=== PATIENT | female | born 1965 | race Caucasian/White ===

== ENCOUNTER 2020-05-19 16:22 | Inpatient (IN) | payer OTHER ==
[~2020-05-19] VITALS: Ht 177.8 cm; Wt 117.9 kg
--- NOTE | 2020-05-19 16:22 | NUR ---
PT BIBA RA 88 "was found on side of the free[place] weakness/ALOC" BS-102. PT IS AAOX2, NOT IN RESPIRATORY DISTRESS, HOOKED TO CORN DETASSELER MACHINE OPERATOR, KEPT RESTED ADN COMFORTABLE. WILL CONTINUE TO MONITOR.
--- NOTE | 2020-05-19 16:34 | NUR ---
JAMES SAN AT BEDSIDE FOR EVAL.
--- NOTE | 2020-05-19 16:35 | NUR ---
IV LINE ESTABLISHED BLOOD DRAWN AND SENT TO LAB.
--- NOTE | 2020-05-19 16:39 | NUR ---
HOUSE SUP AT BEDSIDE WITH THE TELE STROKE MONITOR.
--- NOTE | 2020-05-19 16:40 | NUR ---
PT IS WHEELED TO CT SCAN VIA ACLS.
[2020-05-19 16:47] LABS: BASOPHILS % (AUTO) 0.7 % (0.0-2.0); EOSINOPHILS % (AUTO) 3.3 % (0.0-6.0); HEMATOCRIT 42 % (33-45); HEMOGLOBIN 13.4 g/dL (11.5-14.8); LYMPHOCYTES # (AUTO) 0.8 /CMM (0.8-4.8); LYMPHOCYTES % (AUTO) 30.1 % (20.0-44.0); MEAN CORPUSCULAR HGB CONC 32 g/dl (31.0-36.0); MEAN CORPUSCULAR VOLUME 87 fL (82-100); MONOCYTES # (AUTO) 0.3 /CMM (0.1-1.30); MONOCYTES % (AUTO) 12.9 % (2.0-12.0); NEUTROPHILS # (AUTO) 1.4 /CMM (1.8-8.9); PLATELET COUNT (AUTO) 199 /CMM (150-450); RED BLOOD CELL COUNT(AUTO) 4.78 MIL/uL (4.0-5.2); WHITE BLOOD COUNT (AUTO) 2.6 K/uL (4.3-11.0)
--- NOTE | 2020-05-19 16:50 | NUR ---
PATIENT BEING ASSESSED BY DR. LUCIA BY TELE NEURO.
[2020-05-19 17:01] LABS: CALCIUM, SERUM 8.9 mg/dL (8.5-10.1); CARBON DIOXIDE 22 mmol/L (21-32); CHLORIDE 106 mmol/L (98-107); CREATININE 1.1 mg/dL (0.6-1.3); GLUCOSE 98 mg/dL (74-106); POTASSIUM 3.7 mmol/L (3.5-5.1); SODIUM SERUM 141 mmol/L (136-145); UREA NITROGEN, BLOOD 6 mg/dL (7-18)
--- NOTE | 2020-05-19 17:04 | NUR ---
NO TPA PER NEUROLOGIST DR. LUCIA.
[2020-05-19 17:07] LABS: CHOLESTEROL 155 mg/dL (<200); HDL CHOLESTEROL 49 mg/dL (40-60); LDL 91 mg/dL (0-99); TRIGLYCERIDES 71 mg/dL (30-150)
--- NOTE | 2020-05-19 17:08 | NUR ---
CALLED NO ANSWER MESSAGE LEFT.
--- NOTE | 2020-05-19 17:13 | NUR ---
PATIENT VERBALLY RESPONSIVE, NO DISTRESS NOTED, VITALS STABLE.
[2020-05-19] MEDS ORDERED: DOCU100C36 MT (17:19)
[2020-05-19] MEDS ORDERED: IBUP-1953 MT (17:19)
[2020-05-19] MEDS ORDERED: [UNRECOGNIZED DRUG - OTHER] MT (17:19)
[2020-05-19] MEDS ORDERED: OXYC5TAB3 MT (17:19)
--- NOTE | 2020-05-19 17:25 | NUR ---
SPOKED TO CHELSEA CURAM DEVELOPER VERBAL AUTH GIVEN.
[2020-05-19] MEDS ORDERED: DEXAMETHASONE SOD PHOSPHATE 10 MG/ML VIAL ONE (17:29)
[2020-05-19] MEDS ORDERED: LEVETIRACETAM (500MG) 1,000 MG in IV NS 0.9% 100 ML IV ONE (17:30)
[2020-05-19] MEDS ORDERED: DEXAMETHASONE SOD PHOSPHATE 10 MG/ML VIAL IV ONE (17:30)
--- NOTE | 2020-05-19 18:19 | NUR ---
REFUSING BRANDIE PEREZ MD MADE AWARE.
--- NOTE | 2020-05-19 18:47 | NUR ---
COVID SWAB SENT.
--- NOTE | 2020-05-19 19:10 | NUR ---
REC'D REPORT FROM EITAN CHEATHAM FOR PAM
--- NOTE | 2020-05-19 19:45 | NUR ---
LAB CALLED REGARDING NEGATIVE COVID RESULT.
--- NOTE | 2020-05-19 19:46 | NUR ---
CALLED NURSING SUP FOR TELE BED.
--- NOTE | 2020-05-19 20:14 | NUR ---
TELE 328-4
--- NOTE | 2020-05-19 20:44 | NUR ---
REPORT GIVEN TO EITAN ABEL FOR PAM
--- NOTE | 2020-05-19 20:47 | NUR ---
RN NOTE RECEIVED REPORT FROM EITAN SHEIKH; AWAITING FOR PATIENT ARRIVAL ON UNIT
[2020-05-19 20:56] VITALS: BP 128/64
--- NOTE | 2020-05-19 21:33 | NUR ---
COTTON PROGRAM TECHNICIAN ADMITTING NOTES PATIENT ARRIVED TO UNIT VIA GURNEY, APPROX 2055; PATIENT AMBULATORY WITH STEADY GAIT; A/OX4, BREATHING EVEN AND UNLABORED; NO SOB NOTED; TOLERATING ROOM AIR WELL; MEDICAL AND SURGICAL HX OBTAINED; BELONGINGS CHECKED; TELE MONITOR ATTACHED, READS SINUS RHYTHM 61BPM; SKIN ASSESSMENT DONE, SKIN INTACT; R LEG EDEMA NOTED; PICTURE TAKEN AND FILED IN PATIENT BINDER; PATIENT ORIENTED TO UNIT AND TO STAFF; R AC #18 INTACT AND PATENT, FLUSHING WELL; NO S/S OF REDNESS OR INFILTRATION NOTED; SAFETY PRECAUTIONS IMPLEMENTED; BED LOCKED IN LOW POSITION; SIDE RAILSX2; CALL LIGHT WITHIN REACH SPOKE WITH EMPLOYEE FROM [employer] REGARDING PATIENT'S CAR; [phone]; AWAITING MD ORDERS; CHARGE NURSE AWARE; WILL CONT TO MONITOR
[2020-05-19] MEDS ORDERED: oxyCODONE IR immediate release 5 MG PO PRN (22:00)
[2020-05-19] MEDS ORDERED: ZOLPIDEM TARTRATE 5 MG TABLET PO PRN (22:00)
[2020-05-19] MEDS ORDERED: IBUPROFEN 400 MG TABLET PO PRN (22:00)
[2020-05-19] MEDS ORDERED: ONDANSETRON HCL/PF 4 MG/2 ML VIAL IVP PRN (22:00)
[2020-05-19] MEDS ORDERED: DOCUSATE SODIUM 100 MG CAPSULE PO PRN (22:00)
[2020-05-19] MEDS ORDERED: ACETAMINOPHEN 325 MG TABLET PO PRN (22:00)
[2020-05-19] MEDS ORDERED: Z GUARD REMEDY 2 OZ OINT TP PRN (22:00)
[2020-05-19 22:15] VITALS: BP 128/64
[2020-05-19] MEDS: DEXAMETHASONE 4 MG TABLET PO SCH (22:18)
[2020-05-19] MEDS: PANTOPRAZOLE 40 MG TABLET.DR PO SCH (22:18)
[2020-05-19] MEDS: LEVETIRACETAM (250 MG) 250 MG TABLET PO SCH (22:18)
--- NOTE | 2020-05-19 22:30 | NUR ---
TRAVEL REGISTERED NURSE PACU NOTES PATIENT ABLE TO SWALLOW MEDICATION WITH SIPS OF WATER; NO COUGH/ASPIRATION NOTED; PATENT AIRWAY MAINTAINED; WILL CONT TO MONITOR
--- NOTE | 2020-05-19 23:01 | NUR ---
FRUIT AND VEGETABLE FACTORY WORKER NOTES VTE SCORE OF 3, DVT PUMPS ORDERED; AWAITING MD ORDER FOR CHEMICAL PROPHYLAXIS
--- NOTE | 2020-05-19 23:04 | NUR ---
COMMUNITY COORDINATOR FOR HIGH SCHOOL NOTES PER MD ENA MCLAIN; NO CHEMICAL PROPHYLAXIS ORDER AT THIS TIME D/T POSSIBLE BRAIN MASS; WILL LEAD TO POTENTIAL BLEEDING; CHARGE NURSE AWARE; WILL CONT TO MONITOR
[2020-05-20] VITALS: BP 143/76
--- NOTE | 2020-05-20 03:00 | NUR ---
SURVEYOR GEODETIC NOTES PATIENT LEFT BREAST IS HARD AND HAS WOUNDS, PATIENT REFUSING PICTURES OF BREAST TO BE TAKEN; PATIENT EDUCATED ON PROTOCOL BUT DID NOT FEEL COMFORTABLE WITH HAVING HER LEFT BREAST PICTURED; PATIENT AGREED FOR RIGHT LEG EDEMA; CHARGE NURSE AWARE
--- NOTE | 2020-05-20 03:01 | NUR ---
RECREATION THERAPY TEACHER NOTES PATIENT REQUESTED IODINE PREP PAD FOR LEFT BREAST TO BE CLEANSED; PER PATIENT, SHE HAS BEEN CLEANING LEFT BREAST WITH IODINE AND REPORTED, "IT HAS BEEN DOING WONDERS". CHARGE NURSE AWARE; WILL CONT TO MONITOR
[2020-05-20 04:00] VITALS: BP 140/72
[2020-05-20] MEDS: DEXAMETHASONE 4 MG TABLET PO SCH (04:54)
--- NOTE | 2020-05-20 06:30 | NUR ---
SERVICE DISPATCHER NOTES PATIENT REPORTED DAUGHTER MAY COME TO DROP OFF CELLPHONE DIRECTOR BROADCAST AND TO FOOD SERVICE [facility] DEBIT CARDS (BLUE, 1 AND 1 CURRENT); CARDS PLACED IN FOLDED PAPER, LABELLED AND TAPED; PLACED ON BEDSIDE TABLE; WILL INFORM DAY SHIFT
--- NOTE | 2020-05-20 06:48 | NUR ---
DRUM ATTENDANT CLOSING NOTES PATIENT RESTING IN BED COMFORTABLY; A/OX4, BREATHING EVEN AND UNLABORED; NO SOB NOTED; TOLERATING ROOM AIR WELL; ABLE TO MAKE NEEDS KNOWN; TELE MONITOR READS SINUS VIJAY - NSR; R AC # 18 S/L, INTACT AND PATENT; ALL NEEDS RENDERED; SAFETY PRECAUTIONS IMPLEMENTED; BED LOCKED IN LOW POSITION; SIDE RAILSX2; CALL LIGHT WITHIN EASY REACH; WILL ENDORSE PAM TO ONCOMING SHIFT
[2020-05-20 08:00] VITALS: BP 121/77
[2020-05-20] MEDS: LEVETIRACETAM (250 MG) 250 MG TABLET PO SCH (09:04)
[2020-05-20] MEDS: PANTOPRAZOLE 40 MG TABLET.DR PO SCH (09:05)
--- NOTE | 2020-05-20 11:10 | NUR ---
2 credit cards was given to patient's daughter
--- NOTE | 2020-05-20 12:30 | NUR ---
Patient requested to be d/c due to family emergency. MD notified and won't d/c patient . Patient strongly refused to stay and requested AMA form to leave now. Patient awake alert and oriented x3 , gait is steady. VS are stable and within baseline. Offered patient to wait for d/c instructions and paperwork; patient agreed. All documentation provided; patient sighed AMA form; D/c instructions; and valuable form. Patient instructed to f/u with oncologist and diamond picker medication from preferred pharmacy. IV line removed; ID wrist line removed. Patient safely transferred to [facility] via wheelchair accompanied by JOHN Flynn where she was picked up by daughter.
[2020-05-20] MEDS ORDERED: DEXA4TAB PO (14:30)
[2020-05-20] MEDS ORDERED: LEVE500T9 PO (14:30)
== END 2020-05-20 12:45 | disposition left against medical advice (07) | DRG 41 ==
LOC: ER 16:27 → UNDOADMIN 20:34 → TELE-TD 20:34 → ER 20:59 → TELE 21:01
PROVIDERS: ADMIT Nurse Practitioner Acute Care; ATTEND Nurse Practitioner Acute Care
DX: C79.31 Secondary malignant neoplasm of brain (principal); G93.6 Cerebral edema; C50.919 Malignant neoplasm of unspecified site of unspecified female breast; Z88.2 Allergy status to sulfonamides; Z79.891 Long term (current) use of opiate analgesic; Z79.899 Other long term (current) drug therapy; D72.819 Decreased white blood cell count, unspecified; Z85.3 Personal history of malignant neoplasm of breast; G89.4 Chronic pain syndrome
CPT/HCPCS: 36415; 70450-TC; 71045-TC; 80048-TC; 80061-TC; 80305; 82962-TC; 84484-TC; 85025-TC; 85730-TC; 87081-TC; 97116-TC; 97530-TC; C9803-CS; G0378; J1100; J1953; J7030; J8540

== ENCOUNTER 2020-09-28 12:03 | Inpatient (IN) | payer OTHER ==
[~2020-09-28] VITALS: Ht 175.3 cm; Wt 117.9 kg
[~2020-09-28 12:03] MED LIST: DEXA4TAB PO; DOCU100C36 MT; IBUP-1953 MT; LEVE500T9 PO; OXYC5TAB3 MT; [UNRECOGNIZED DRUG - OTHER] MT
--- NOTE | 2020-09-28 12:20 | NUR ---
SOB, COUGHING OUT BLOOD X YESTERDAY. PATIENT A/OX4, BREATHING EVEN AND UNLABORED, ON THE MONITOR SPO2 SHOWS 98%. ATTACHED TO THE ROLLER HELPER.
[2020-09-28] MEDS ORDERED: IV NS 0.9% 1,000 ML IV ONE (12:30)
[2020-09-28] MEDS ORDERED: ANAS1TAB50 PO (12:48)
[2020-09-28 13:07] LABS: BASOPHILS % (AUTO) 0.3 % (0.0-2.0); EOSINOPHILS % (AUTO) 0.2 % (0.0-6.0); HEMATOCRIT 42 % (33-45); HEMOGLOBIN 13.8 g/dL (11.5-14.8); LYMPHOCYTES % (AUTO) 10.9 % (20.0-44.0); MEAN CORPUSCULAR HGB CONC 33 g/dl (31.0-36.0); MEAN CORPUSCULAR VOLUME 90 fL (82-100); MONOCYTES # (AUTO) 0.7 /CMM (0.1-1.30); MONOCYTES % (AUTO) 7.3 % (2.0-12.0); NEUTROPHILS # (AUTO) 7.5 /CMM (1.8-8.9); NEUTROPHILS % (AUTO) 81.3 % (43.0-81.0); PLATELET COUNT (AUTO) 265 /CMM (150-450); RED BLOOD CELL COUNT(AUTO) 4.73 MIL/uL (4.0-5.2); WHITE BLOOD COUNT (AUTO) 9.2 K/uL (4.3-11.0)
[2020-09-28 13:10] LABS: CALCIUM, SERUM 9.4 mg/dL (8.5-10.1); CARBON DIOXIDE 25 mmol/L (21-32); CHLORIDE 104 mmol/L (98-107); CREATININE 1.3 mg/dL (0.6-1.3); GLUCOSE 124 mg/dL (74-106); POTASSIUM 3.9 mmol/L (3.5-5.1); SODIUM SERUM 139 mmol/L (136-145); UREA NITROGEN, BLOOD 21 mg/dL (7-18)
[2020-09-28 13:25] LABS: ALANINE AMINOTRANSFERASE 9 U/L (12-78); ALKALINE PHOSPHATASE 76 U/L (46-116); ASPARTATE AMINOTRANSFERASE 10 U/L (15-37); B-TYPE NATRIURETIC PEPTIDE 67 PG/ML (0-125); BILIRUBIN,DIRECT 0.3 mg/dL (0.0-0.2); BILIRUBIN,TOTAL 1.1 mg/dL (0.2-1.0); TOTAL PROTEIN, SERUM 7.7 g/dL (6.4-8.2)
[2020-09-28] MEDS ORDERED: IV NS 0.9% 250 ML IV ONE (13:41)
[2020-09-28] MEDS ORDERED: IOHEXOL-350 100 ML VIAL IV ONE (13:41)
[2020-09-28] MEDS ORDERED: CT SWABBABLE VALVE TRANS SET 1 EA INFUS.SET MC ONE (13:41)
--- NOTE | 2020-09-28 13:52 | NUR ---
RECEIVED RESULTS FROM LAB, COVID NEGATIVE
[2020-09-28] MEDS ORDERED: ONDANSETRON HCL/PF 4 MG/2 ML VIAL ONE (14:25)
[2020-09-28] MEDS ORDERED: MORPHINE SULFATE INJ 4 MG/ML DISP.SYRIN ONE (14:25)
[2020-09-28] MEDS ORDERED: MORPHINE SULFATE INJ 10 MG/ML DISP.SYRIN IV ONE (14:30)
[2020-09-28] MEDS ORDERED: ONDANSETRON HCL/PF - ER 4 MG/2 ML VIAL IV ONE (14:30)
--- NOTE | 2020-09-28 14:31 | NUR ---
PATIENT C/O SEVERE BACK PAIN, DIFFICULTY BREATHING. DR ANDINO MADE AWARE. MORPHINE 4MG AND ZOFRAN 4MG IVP VERBALLY ORDERED. WILL CARRY OUT.
--- NOTE | 2020-09-28 14:43 | NUR ---
PATIENT RESTING IN BED, NO DISTRESS NOTED. CALLED PHARMACY RE: HANDY.
[2020-09-28] MEDS ORDERED: ENOXAPARIN SODIUM 100 MG/ML DISP.SYRIN SQ ONE ×2 (14:53→15:00)
--- NOTE | 2020-09-28 15:38 | NUR ---
received bed 326-1
--- NOTE | 2020-09-28 15:42 | NUR ---
report given to Hailee LAIRD for latoya.
--- NOTE | 2020-09-28 15:55 | NUR ---
PER ADMITTING, AWAITING CALL BACK FROM OPEN HEARTH FURNACE OPERATOR FOR INSURANCE.
--- NOTE | 2020-09-28 16:04 | NUR ---
CALL FROM [facility] [phone] [phone], PROVIDED WITH ADMITTING DX, TELE UNIT AND ADMITTING MD
--- NOTE | 2020-09-28 16:44 | NUR ---
PATIENT A/OX4, BREATHING EVEN AND UNLABORED, NO SOB NOTED. TRANSFERRED TO ROOM 326-1 VIA ACLS PROTOCOL. NO DISTRESS NOTED. NEEDS ATTENDED. KEPT COMFORTABLE.
--- NOTE | 2020-09-28 16:59 | NUR ---
RN NOTE RECEIVED PT INTO ROOM 326-1. PT IS A/O X3 AND COOPERATIVE. ARMENIAN SPEAKING AND IS ABLE TO MAKE NEEDS KNOWN. PT IS ON RA WITH O2 SAT OF 99%. NO SIGNS OF SOB OR RESPIRATORY DISTRESS PRESENT. PT IS ABLE TO AMBULATE WITH ASSISTANCE. SKIN IS INTACT. HL PRESENT IN R AC GAUGE 20. SAFETY MEASURES IN PLACE. BED LOWERED. SIDE RAILS RAISED. CALL LIGHT WITHIN REACH. WILL CONTINUE TO MONITOR.
--- NOTE | 2020-09-28 19:00 | NUR ---
RN CLOSING NOTE RN NOTE PT IS A/O X3 AND COOPERATIVE. GABONESE SPEAKING AND IS ABLE TO MAKE NEEDS KNOWN. PT IS ON RA WITH O2 SAT OF 99%. NO SIGNS OF SOB OR RESPIRATORY DISTRESS PRESENT. PT IS ABLE TO AMBULATE WITH ASSISTANCE. SKIN IS INTACT. HL PRESENT IN R AC GAUGE 20. SAFETY MEASURES IN PLACE. BED LOWERED. SIDE RAILS RAISED. CALL LIGHT WITHIN REACH.
--- NOTE | 2020-09-28 19:44 | NUR ---
ANIMAL KEEPER HEAD OPENING NOTES PATIENT IN BED A/OX4; ABLE TO MAKE NEEDS KNOWN. ON ROOM AIR; TOLERATING WELL WITH NO SOB. ON EXTERNAL CARDIAC MONITORING READING SR AND HR AT 77. IV TO RAC #20; PATENT AND INTACT. DENIES PAIN OR DISCOMFORT AT THIS TIME. SAFETY MEASURES IN PLACE; BED IS LOWEST LOCKED POSITION, SIDE RAILS UPX1, CALL LIGHT WITHIN EASY REACH. WILL CONTINUE TO MONITOR.
[2020-09-28 20:00] VITALS: BP 147/84
[2020-09-28] MEDS ORDERED: DOCUSATE SODIUM 100 MG CAPSULE PO PRN (21:30)
[2020-09-28] MEDS ORDERED: oxyCODONE IR immediate release 5 MG PO PRN (22:00)
[2020-09-28] MEDS ORDERED: IV NS 0.9% 1,000 ML IV PRN (22:30)
[2020-09-28] MEDS ORDERED: ACETAMINOPHEN 325 MG TABLET PO PRN (22:30)
[2020-09-28] MEDS ORDERED: ONDANSETRON HCL/PF 4 MG/2 ML VIAL IVP PRN (22:30)
[2020-09-28] MEDS ORDERED: Z GUARD REMEDY 2 OZ OINT TP PRN (22:30)
[2020-09-29] MEDS: HYDROMORPHONE INJ 2 MG/ML DISP.SYRIN IV PRN ×3 (02:44→13:29)
--- NOTE | 2020-09-29 02:45 | NUR ---
SR. OPERATIONS MANAGER NOTES - PAIN PRN PATIENT C/O 10/10 ACHING PAIN ON HER MID BACK. ADMINISTERED DILAUDID 1G IV. WILL CONTINUE TO ASSESS PAIN LEVEL.
[2020-09-29 04:31] LABS: BASOPHILS % (AUTO) 0.2 % (0.0-2.0); EOSINOPHILS % (AUTO) 0.6 % (0.0-6.0); HEMATOCRIT 36 % (33-45); HEMOGLOBIN 11.8 g/dL (11.5-14.8); LYMPHOCYTES # (AUTO) 0.6 /CMM (0.8-4.8); MEAN CORPUSCULAR HGB CONC 33 g/dl (31.0-36.0); MEAN CORPUSCULAR VOLUME 89 fL (82-100); MONOCYTES # (AUTO) 0.5 /CMM (0.1-1.30); MONOCYTES % (AUTO) 7.7 % (2.0-12.0); NEUTROPHILS # (AUTO) 5.3 /CMM (1.8-8.9); NEUTROPHILS % (AUTO) 82.5 % (43.0-81.0); PLATELET COUNT (AUTO) 215 /CMM (150-450); WHITE BLOOD COUNT (AUTO) 6.4 K/uL (4.3-11.0)
[2020-09-29 05:00] LABS: ALBUMIN 2.3 g/dL (3.4-5.0); BILIRUBIN,TOTAL 0.8 mg/dL (0.2-1.0); CALCIUM, SERUM 8.5 mg/dL (8.5-10.1); MAGNESIUM 1.9 mg/dL (1.8-2.4); PHOSPHORUS 3.6 mg/dL (2.5-4.9); POTASSIUM 3.6 mmol/L (3.5-5.1); TOTAL PROTEIN, SERUM 6.4 g/dL (6.4-8.2)
--- NOTE | 2020-09-29 06:45 | NUR ---
MEDICAID NURSE CLOSING NOTES PATIENT IN BED SLEEPING A/OX4; ABLE TO MAKE NEEDS KNOWN. ON ROOM AIR; TOLERATING WELL WITH NO SOB. ON EXTERNAL CARDIAC MONITORING READING SR AND HR AT 78. IV TO RAC #20; PATENT AND INTACT; INFUSING NS @ 100ML/HR. SAFETY MEASURES IN PLACE; BED IS LOWEST LOCKED POSITION, SIDE RAILS UPX1, CALL LIGHT WITHIN EASY REACH. WILL ENDORSE PAM TO ONCOMING AM RN
--- NOTE | 2020-09-29 07:10 | NUR ---
LADIES LOCKER ROOM ATTENDANT OPENING NOTES PATIENT IN BED. A/O X4. AFEBRILE. NO S/SX OF RESPIRATORY DISTRESS. IV SITE R AC #20 G, INTACT, NS RUNNING @100 ML/HR. SAFETY MEASURES MAINTAINED. BED IN LOWEST POSITION, LOCKED. SIDE RAILS UP X 2. CALL LIGHT WITHIN REACH. WILL CONTINUE PLAN OF CARE.
[2020-09-29] MEDS ORDERED: ANASTROZOLE 1 MG TABLET PO SCH ×2 (09:00→15:00)
--- NOTE | 2020-09-29 09:00 | NUR ---
AUTOMOBILE LEASING SUPERVISOR NOTES ADMINISTERED HYDROMORPHONE CHAN @0901. MEDICATION WASN'T SCANNED. WASTE MED WITNESSED BY EITAN SMITH.
[2020-09-29] MEDS: RIVAROXABAN 15 MG TABLET PO SCH ×3 (09:03→17:11)
--- NOTE | 2020-09-29 09:08 | NUR ---
TIRE ADJUSTER NOTES PULLED OUT LAMOTIGRINE INSTEAD OF KEPPRA. RETURNED LAMOTIGRINE AND OPENED THE PYXIS FOR 2 KEPPRA.
[2020-09-29] MEDS: LEVETIRACETAM (250 MG) 250 MG TABLET PO SCH ×2 (09:09→17:10)
[2020-09-29 09:31] VITALS: BP 149/79
[2020-09-29 13:39] VITALS: BP 161/87
--- NOTE | 2020-09-29 14:37 | NUR ---
BODS DEVELOPER NOTES OBTAINED CONSENT FOR IVC FILTER PLACEMENT PROCEDURE UNDER DR. WILSON. ORDERED NPO AFTER MIDNIGHT.
[2020-09-29 16:00] VITALS: BP 155/92
[2020-09-29 16:46] VITALS: BP 161/87
--- NOTE | 2020-09-29 17:30 | NUR ---
SPECIMEN TECHNICIAN NOTES HELD MADHAV. REASON, UPCOMING IVF FILTER PLACEMENT PROCEDURE.
[2020-09-29 20:54] VITALS: BP 141/87
--- NOTE | 2020-09-29 21:00 | NUR ---
TRACK WALKER NOTES DR ENA MCLAIN ORDERED DISCHARGE FOR TONIGHT. POOL MANAGER NURSE WERE INFORMED.
--- NOTE | 2020-09-29 21:17 | NUR ---
RUSSIAN TEACHER CLOSING NOTES PATIENT IN BED. A/O X4. AFEBRILE. IN NO APPARENT DISTRESS. IN PAIN, DILAUDID, OXYCODONE PRN GIVEN ORDERED. VERBALIZED THAT SHE WAS HAVING DIFFICULTY BREATHING. PATIENT WAS PUT ON NC 2L OF O2. IV SITE R AC #20 G, INTACT, NS RUNNING @100 ML/HR. SAFETY MEASURES MAINTAINED. BED IN LOWEST POSITION, LOCKED. SIDE RAILS UP X 2. CALL LIGHT WITHIN REACH. WILL ENDORSE TO NIGHT FOR PAM.
[2020-09-29] MEDS ORDERED: RIVA15TA PO (21:36)
--- NOTE | 2020-09-30 04:47 | NUR ---
D/C PACKET/INSTRUCTIONS GIVEN TO THE PATIENT. NO IV HEPLOCKS. PT'S HOME MEDS RETURNED TO THE PATIENT.
== END 2020-09-30 11:15 | disposition home or self-care (01) | DRG 134 ==
LOC: ER 12:17 → TELE 16:15
PROVIDERS: ADMIT Nurse Practitioner Acute Care; ATTEND Nurse Practitioner Acute Care
DX: I26.99 Other pulmonary embolism without acute cor pulmonale (principal); D68.69 Other thrombophilia; I25.10 Atherosclerotic heart disease of native coronary artery without angina pectoris; K21.9 Gastro-esophageal reflux disease without esophagitis; Z87.891 Personal history of nicotine dependence; I10 Essential (primary) hypertension; G89.4 Chronic pain syndrome; C79.31 Secondary malignant neoplasm of brain; D05.12 Intraductal carcinoma in situ of left breast; E86.0 Dehydration; Z92.3 Personal history of irradiation; Z20.822 Contact with and (suspected) exposure to COVID-19; Z88.2 Allergy status to sulfonamides; Z79.811 Long term (current) use of aromatase inhibitors
CPT/HCPCS: 36415; 70450-TC; 71045-TC; 80048-TC; 80053-TC; 80061-TC; 80076-TC; 83605-TC; 83735-TC; 83880; 84100-TC; 84484-TC; 85025-TC; 85378-TC; 87081-TC; 93307-TC; C9803; G0378; J1170; J1650; J2270; J2405; J7030; J7050; Q9967

== ENCOUNTER 2021-04-13 06:58 | Emergency (ER) | payer OTHER ==
[~2021-04-13] VITALS: Ht 175.3 cm; Wt 104.3 kg
[2021-04-13 06:58] VITALS: BP 149/74
[~2021-04-13 06:58] MED LIST changes: +ANAS1TAB50 PO; -DEXA4TAB PO; -IBUP-1953 MT; +RIVA15TA PO; -[UNRECOGNIZED DRUG - OTHER] MT
[2021-04-13] MEDS ORDERED: OMEP40CA21 PO (07:28)
[2021-04-13] MEDS ORDERED: AMOX500C2 PO (07:28)
--- NOTE | 2021-04-13 07:51 | NUR ---
Patient discharged to home in stable condition. Written and verbal after care instructions given. Patient verbalizes understanding of instruction.
== END 2021-04-13 07:52 | disposition home or self-care (01) ==
LOC: ER 07:00
DX: R59.0 Localized enlarged lymph nodes (principal); K29.70 Gastritis, unspecified, without bleeding; Z88.2 Allergy status to sulfonamides; Z79.899 Other long term (current) drug therapy

== ENCOUNTER 2021-06-01 07:10 | Inpatient (IN) | payer OTHER ==
[~2021-06-01] VITALS: Ht 175.3 cm; Wt 94.1 kg
[~2021-06-01 07:10] MED LIST changes: +AMOX500C2 PO; +OMEP40CA21 PO
--- NOTE | 2021-06-01 07:10 | NUR ---
PT BIB SELF C/O SOB FOR 1 WEEK. SEEN LAST WEEK IN [facility] FOR SAME CC. PT IS AAOX4, NOT IN RESPIRATORY DISTRESS O2 AT 97% ON RA. HOOKED TO COATER CARBON PAPER, KEPT RESTED AND COMFORTABLE. WILL CONTINUE TO MONITOR.
--- NOTE | 2021-06-01 07:15 | NUR ---
AT BEDSIDE FOR EVAL.
[2021-06-01] MEDS ORDERED: IV NS 0.9% 1,000 ML BAG IV ONE ×2 (07:30→09:00)
--- NOTE | 2021-06-01 07:39 | NUR ---
COVID SPECIMEN OBTAINED AND SENT TO LAB.
[2021-06-01 07:54] LABS: BASOPHILS % (AUTO) 0.9 % (0.0-2.0); EOSINOPHILS % (AUTO) 0.1 % (0.0-6.0); HEMATOCRIT 43 % (33-45); HEMOGLOBIN 14.5 g/dL (11.5-14.8); LYMPHOCYTES % (AUTO) 19.6 % (20.0-44.0); MEAN CORPUSCULAR HGB CONC 33 g/dl (31.0-36.0); MEAN CORPUSCULAR VOLUME 86 fL (82-100); MONOCYTES # (AUTO) 0.4 K/uL (0.1-1.30); MONOCYTES % (AUTO) 7.5 % (2.0-12.0); NEUTROPHILS # (AUTO) 3.8 K/uL (1.8-8.9); NEUTROPHILS % (AUTO) 71.9 % (43.0-81.0); PLATELET COUNT (AUTO) 243 K/uL (150-450); RED BLOOD CELL COUNT(AUTO) 5.06 MIL/uL (4.0-5.2); WHITE BLOOD COUNT (AUTO) 5.3 K/uL (4.3-11.0)
[2021-06-01 08:29] LABS: CARBON DIOXIDE 20 mmol/L (21-32); CHLORIDE 100 mmol/L (98-107); POTASSIUM 4.1 mmol/L (3.5-5.1); SODIUM SERUM 137 mmol/L (136-145)
[2021-06-01 08:30] LABS: ALKALINE PHOSPHATASE 826 U/L (46-116); ASPARTATE AMINOTRANSFERASE 638 U/L (15-37); BILIRUBIN,DIRECT 6.8 mg/dL (0.0-0.2); BILIRUBIN,TOTAL 8.1 mg/dL (0.2-1.0); CREATININE 1.4 mg/dL (0.6-1.3); GLUCOSE 91 mg/dL (74-106); UREA NITROGEN, BLOOD 20 mg/dL (7-18)
[2021-06-01 08:31] LABS: ALANINE AMINOTRANSFERASE 141 U/L (12-78); ALBUMIN 2.6 g/dL (3.4-5.0); TOTAL PROTEIN, SERUM 8.3 g/dL (6.4-8.2)
--- NOTE | 2021-06-01 08:54 | NUR ---
US AT BEDSIDE
[2021-06-01] MEDS ORDERED: CEFTRIAXONE 1GM BAG (ER ONLY) 50 ML IV ONE ×2 (08:57→09:00)
[2021-06-01] MEDS ORDERED: MORPHINE SULFATE INJ 4 MG/ML DISP.SYRIN ONE (08:58)
[2021-06-01] MEDS ORDERED: MORPHINE SULFATE INJ 2 MG/ML DISP.SYRIN IV ONE (09:00)
[2021-06-01] MEDS ORDERED: ONDANSETRON HCL/PF 4 MG/2 ML VIAL IVP ONE (09:00)
[2021-06-01] MEDS ORDERED: ONDANSETRON HCL/PF 4 MG/2 ML VIAL ONE (09:10)
--- NOTE | 2021-06-01 09:48 | NUR ---
MARKET DEVELOPMENT MANAGER AT BEDSIDE FOR XRAY.
--- NOTE | 2021-06-01 10:06 | NUR ---
Spoke to Clifford Collins and gave verbal auth for patient to stay for admission.
[2021-06-01] MEDS ORDERED: AZITHROMYCIN 500 MG in IV D5W 250 ML IV ONE (10:30)
--- NOTE | 2021-06-01 10:43 | NUR ---
URINE COLLECTED AND SENT TO LAB
--- NOTE | 2021-06-01 10:53 | NUR ---
COVID SPECIMEN COLLECTED AND SENT TO LAB.
[2021-06-01 11:15] LABS: BILIRUBIN,URINE MODERATE (NEGATIVE); COLOR,URINE YELLOW (YELLOW); LEUKOCYTE ESTERASE ,URINE NEGATIVE (NEGATIVE); NITRITE, URINE NEGATIVE (NEGATIVE); PH,URINE 5.5 (5.0-8.0); PROTEIN,URINE TRACE mg/dl (NEGATIVE); UGLUCOSE NEGATIVE (NEGATIVE)
[2021-06-01 11:25] LABS: BACTERIA,URINE 1+ /HPF (None Seen); FINE GRANULAR CASTS,URINE Few /LPF (None Seen); RBC,URINE NONE SEEN /HPF (0-2); SQUAMOUS EPITHELIAL CELL,UR Moderate /HPF (None Seen); WBC,URINE 0-2 /HPF (0-3)
[2021-06-01] MEDS ORDERED: FUROSEMIDE 20 MG/2 ML VIAL IV ONE (12:00)
[2021-06-01] MEDS ORDERED: FUROSEMIDE 20 MG/2 ML VIAL IV SCH (12:00)
[2021-06-01] MEDS ORDERED: ONDANSETRON HCL/PF 4 MG/2 ML VIAL IVP PRN (12:00)
[2021-06-01] MEDS ORDERED: ACETAMINOPHEN 325 MG TABLET PO PRN (12:00)
[2021-06-01] MEDS ORDERED: Z GUARD REMEDY 2 OZ OINT TP PRN (12:00)
[2021-06-01] MEDS ORDERED: MAG HYDROX/AL HYDROX/SIMETH 30 ML UDC PO PRN (12:00)
[2021-06-01] MEDS ORDERED: ZOLPIDEM TARTRATE 5 MG TABLET PO PRN (12:00)
[2021-06-01] MEDS ORDERED: MAGNESIUM HYDROXIDE 30 ML UDC PO PRN (12:00)
[2021-06-01] MEDS ORDERED: FUROSEMIDE 20 MG/2 ML VIAL ONE (12:44)
[2021-06-01] MEDS ORDERED: RIVAROXABAN 15 MG TABLET PO SCH (17:00)
--- NOTE | 2021-06-01 20:14 | NUR ---
CALLED TO FERNANDA 320-1 Addendum: 06/01/21 at 2017 by NORTH *CORRECTION 328-1
--- NOTE | 2021-06-01 21:20 | NUR ---
PT PROVIDED WITH WARM BLANKETS FOR COMFORT.
--- NOTE | 2021-06-01 21:28 | NUR ---
REPORT GIVEN TO CHARGE NURSE
--- NOTE | 2021-06-01 22:07 | NUR ---
PT TRANSFERRED TO [facility]-2 VIA ACLS PROTOCOL. ALL PT BELONGINGS WITH PT
[2021-06-01 22:10] VITALS: BP 136/81
--- NOTE | 2021-06-01 22:10 | NUR ---
TRIMMER HANDADVERTISEMENT DISTRIBUTOR NOTE PT TRANSPORTED VIA GURNEY TO UNIT AT THIS TIME. PT ADMITTED TO TELE UNDER DR. GENTILE FOR ADMITTING DX OF FLUID OVERLOAD. A/O X4, ABLE TO MAKE NEEDS KNOWN. PT IS ON 2LPM O2 VIA NC WITH NO SOB OR S/S OF RESPIRATORY DISTRESS NOTED. PT IS ON EXTERNAL BRIM PLATER READING ST AT 101 BPM. PT HAS NO C/O PAIN OR DISCOMFORT AT THIS TIME. IV ACCESS IN RIGHT HAND #20, INTACT AND PATENT. SKIN IS INTACT. ORIENTED PT TO STAFF, ROOM, AND UNIT. SAFETY PRECAUTIONS MAINTAINED. BED IN LOWEST LOCKED POSITION, HOB ELEVATED, SIDE RAILS UP X2. CALL LIGHT AND TABLE WITHIN REACH. WILL CONTINUE TO MONITOR.
[2021-06-02] VITALS: BP 141/83
[2021-06-02 04:00] VITALS: BP 143/83
[2021-06-02] MEDS: MORPHINE SULFATE INJ 2 MG/ML DISP.SYRIN IV PRN ×2 (06:43→22:55)
--- NOTE | 2021-06-02 06:43 | NUR ---
RN NOTE - PAIN PT C/O ACHING PAIN IN LOW BACK, RATED 10/10 ON PAIN SCALE. VSS. PER PT REQUEST, ADMINISTERED MORPHINE 2MG IV Q4H PRN FOR PAIN. WILL CONTINUE TO MONITOR PT.
--- NOTE | 2021-06-02 06:56 | NUR ---
TELEVISION AUDIO ENGINEER CLOSING NOTE PT IS AWAKE IN BED. A/O X4. PT IS ON 3LPM O2 VIA NC WITH NO SOB OR S/S OF RESPIRATORY DISTRESS NOTED. PT IS ON EXTERNAL CABLE WIRER READING ST AT 103 BPM. PT HAS NO C/O PAIN OR DISCOMFORT AT THIS TIME. IV ACCESS IN RIGHT HAND #20, INTACT AND PATENT. ALL NEEDS HAVE BEEN MET. PAIN MANAGEMENT ADMINISTERED PER ORDER. SAFETY PRECAUTIONS MAINTAINED AT ALL TIMES. BED IN LOWEST LOCKED POSITION, HOB ELEVATED, SIDE RAILS UP X2. CALL LIGHT AND TABLE WITHIN REACH. WILL ENDORSE TO ONCOMING NURSE FOR PAM.
--- NOTE | 2021-06-02 07:12 | NUR ---
BUILD TECHNICIAN OPENING NOTE RECEIVED PATIENT ALERT AND ORIENTED X 4, NO COMPLAIN OF PAIN AND DISCOMFORT AT THIS TIME. WITH IV ACCESSES ON RIGHT HAND G20, LEFT AC G18 AND LEFT FOREARM G20 ALL ON SALINE LOCK, PATENT AND INTACT. ON OXYGEN AT 4LPM VIA NASAL CANULA. TOLERATED WELL. SAFETY MEASURES ENSURED WITH BED LOCKED AND AT LOWEST POSITION. CALL LIGHT WITHIN REACH AT ALL TIMES. WILL CONTINUE TO MONITOR PATIENT.
[2021-06-02] MEDS ORDERED: PANTOPRAZOLE 40 MG TABLET.DR PO SCH (07:30)
[2021-06-02 07:34] LABS: BASOPHILS % (AUTO) 0.8 % (0.0-2.0); EOSINOPHILS % (AUTO) 0.2 % (0.0-6.0); HEMATOCRIT 41 % (33-45); HEMOGLOBIN 13.6 g/dL (11.5-14.8); LYMPHOCYTES # (AUTO) 1.2 K/uL (0.8-4.8); LYMPHOCYTES % (AUTO) 26.6 % (20.0-44.0); MEAN CORPUSCULAR HGB CONC 33 g/dl (31.0-36.0); MEAN CORPUSCULAR VOLUME 85 fL (82-100); MONOCYTES # (AUTO) 0.4 K/uL (0.1-1.30); MONOCYTES % (AUTO) 8.4 % (2.0-12.0); PLATELET COUNT (AUTO) 242 K/uL (150-450); RED BLOOD CELL COUNT(AUTO) 4.83 MIL/uL (4.0-5.2); WHITE BLOOD COUNT (AUTO) 4.7 K/uL (4.3-11.0)
[2021-06-02 08:32] VITALS: BP 132/88
[2021-06-02] MEDS: ANASTROZOLE 1 MG TABLET PO SCH (08:34)
[2021-06-02 09:08] LABS: ALBUMIN 2.5 g/dL (3.4-5.0); BILIRUBIN,DIRECT 6.3 mg/dL (0.0-0.2); BILIRUBIN,TOTAL 7.4 mg/dL (0.2-1.0); CALCIUM, SERUM 9.5 mg/dL (8.5-10.1); CREATININE 1.1 mg/dL (0.6-1.3); MAGNESIUM 2.3 mg/dL (1.8-2.4); PHOSPHORUS 3.1 mg/dL (2.5-4.9); POTASSIUM 4.4 mmol/L (3.5-5.1); TOTAL PROTEIN, SERUM 7.9 g/dL (6.4-8.2)
--- NOTE | 2021-06-02 09:30 | NUR ---
WIND FARM ENGINEER NOTE PATIENT FOR CT PULMO ANGIO. CONSENT SECURED AND ATTACHED TO CHART. AWAITING PICK-UP FROM RADIOLOGIST. WILL CONTINUE TO MONITOR PATIENT.
--- NOTE | 2021-06-02 09:30 | NUR ---
SPECIMEN TECHNICIAN NOTE PATIENT SEEN BY DR. GENTILE.
[2021-06-02] MEDS: PANTOPRAZOLE 40 MG TABLET.DR PO SCH (10:06)
[2021-06-02] MEDS: FUROSEMIDE 40 MG/4 ML VIAL IV SCH ×3 (10:06→17:07)
[2021-06-02] MEDS: POTASSIUM CHLORIDE 20 MEQ TAB.PRT.SR PO SCH ×3 (10:06→12:10)
[2021-06-02] MEDS ORDERED: CT SWABBABLE VALVE TRANS SET 1 EA INFUS.SET MC ONE (11:27)
[2021-06-02] MEDS ORDERED: IOHEXOL-350 100 ML VIAL IV ONE (11:27)
[2021-06-02] MEDS ORDERED: IV NS 0.9% 250 ML IV ONE (11:27)
[2021-06-02 16:40] VITALS: BP 124/94
--- NOTE | 2021-06-02 19:00 | NUR ---
CAMPAIGN WORKER CLOSING NOTE PATIENT ALERT AND ORIENTED X 4, NO COMPLAIN OF PAIN AND DISCOMFORT AT THIS TIME. WITH IV ACCESSES ON RIGHT HAND G20, LEFT AC G18 AND LEFT FOREARM G20 ALL ON SALINE LOCK, PATENT AND INTACT. ON OXYGEN AT 4LPM VIA NASAL CANULA. TOLERATED WELL. SAFETY MEASURES ENSURED WITH BED LOCKED AND AT LOWEST POSITION. CALL LIGHT WITHIN REACH AT ALL TIMES. WILL ENDORSE PATIENT FOR CONTINUITY OF CARE.
--- NOTE | 2021-06-02 19:30 | NUR ---
RN OPENING NOTE PATIENT IN BED, SLEEPING, EASILY AROUSED. PATIENT IS ABLE TO MAKE NEEDS KNOWN. A/O X 4. PATIENT IS ON 2 L OF OXYGEN SUPPLEMENTATION, NO SOB NOTED AT REST. PATIENT HAS A LAC 18 G, R HAND 20 G, AND L FA 20 G- IV ACCESS SALINE LOCKED. SAFETY MEASURES IN PLACE: BED LOCKED AND IN LOWEST POSITION, CALL LIGHT WITHIN REACH, SIDE RAILS UP. WILL MONITOR PATIENT CLOSELY.
[2021-06-02 20:32] VITALS: BP 130/88
--- NOTE | 2021-06-02 23:01 | NUR ---
RN NOTE PATIENT GIVEN MORPHINE D/T 04/16 BACK PAIN. WILL RE-ASSESS MED EFFECTIVENESS.
[2021-06-03 07:01] LABS: BASOPHILS % (AUTO) 0.3 % (0.0-2.0); EOSINOPHILS % (AUTO) 0.3 % (0.0-6.0); HEMATOCRIT 44 % (33-45); HEMOGLOBIN 14.2 g/dL (11.5-14.8); LYMPHOCYTES # (AUTO) 0.7 K/uL (0.8-4.8); LYMPHOCYTES % (AUTO) 15.6 % (20.0-44.0); MEAN CORPUSCULAR HGB CONC 32 g/dl (31.0-36.0); MEAN CORPUSCULAR VOLUME 87 fL (82-100); MONOCYTES # (AUTO) 0.3 K/uL (0.1-1.30); MONOCYTES % (AUTO) 7.3 % (2.0-12.0); NEUTROPHILS # (AUTO) 3.6 K/uL (1.8-8.9); NEUTROPHILS % (AUTO) 76.5 % (43.0-81.0); PLATELET COUNT (AUTO) 191 K/uL (150-450); RED BLOOD CELL COUNT(AUTO) 5.04 MIL/uL (4.0-5.2); WHITE BLOOD COUNT (AUTO) 4.7 K/uL (4.3-11.0)
[2021-06-03 07:25] LABS: ALBUMIN 2.3 g/dL (3.4-5.0); BILIRUBIN,TOTAL 7.2 mg/dL (0.2-1.0); CALCIUM, SERUM 9.9 mg/dL (8.5-10.1); CREATININE 1.2 mg/dL (0.6-1.3); TOTAL PROTEIN, SERUM 7.7 g/dL (6.4-8.2)
--- NOTE | 2021-06-03 07:33 | NUR ---
MS RN OPENING NOTE RECEIVED PATIENT ASLEEP IN BED, EASY TO AROUSE. ALERT AND ORIENTED X 4. NO S/S OF DISTRESS NOTED. BREATHING IS EVEN AND UNLABORED. PT IS ON 2L OXYGEN VIA NC. IV ACCESS LAC#18 AND RHAND#20 PATENT AND INTACT. SAFETY MEASURES MAINTAINED WITH BED LOCKED AT LOW POSITION AND SIDE RAILS UP X2. CALL LIGHT IS WITHIN REACH . WILL CONTINUE TO MONITOR THROUGHOUT SHIFT.
--- NOTE | 2021-06-03 07:35 | NUR ---
RN CLOSING NOTE PATIENT IN BED, SLEEPING, EASILY AROUSED. PATIENT IS ABLE TO MAKE NEEDS KNOWN. A/O X 4. PATIENT IS ON 2 L OF OXYGEN SUPPLEMENTATION, NO SOB NOTED AT REST. PATIENT HAS A LAC 18 G AND R HAND 20 G ACCESS SALINE LOCKED, BOTH PATENT AND INTACT. SAFETY MEASURES IN PLACE: BED LOCKED AND IN LOWEST POSITION, CALL LIGHT WITHIN REACH, SIDE RAILS UP. ALL NEEDS MET AND ATTENDED, ALL ORDERS CARRIED OUT, ENDORSED TO DAY SHIFT NURSE FOR PAM.
[2021-06-03 08:00] VITALS: BP 153/99
[2021-06-03] MEDS: ANASTROZOLE 1 MG TABLET PO SCH (08:27)
[2021-06-03] MEDS: PANTOPRAZOLE 40 MG TABLET.DR PO SCH (08:27)
[2021-06-03 10:50] LABS: MAGNESIUM 2.6 mg/dL (1.8-2.4); PHOSPHORUS 4.2 mg/dL (2.5-4.9)
[2021-06-03 11:07] LABS: CANCER AG, 15-3 98.4 U/mL (0.0-25.0)
[2021-06-03 16:00] VITALS: BP 141/101
[2021-06-03] MEDS: MORPHINE SULFATE INJ 2 MG/ML DISP.SYRIN IV PRN (16:59)
[2021-06-03] MEDS: RIVAROXABAN 10 MG TABLET PO SCH (19:22)
--- NOTE | 2021-06-03 19:28 | NUR ---
MS RN CLOSING NOTE PATIENT IN BED, SITTING UP. NO S/S OF DISTRESS NOTED. BREATHING IS EVEN AND UNLABORED. PATIENT WITH 2L OXYGEN VIA NC SATURATING 98%. IV ACCESS PATENT AND INTACT. ALL NEEDS MET THROUGHOUT SHIFT. SAFETY MEASURES MAINTAINED. CALL LIGHT WITHIN REACH. WILL ENDORSE CONTINUITY OF CARE TO ONCOMING SHIFT.
--- NOTE | 2021-06-03 19:30 | NUR ---
RN OPENING NOTE PATIENT IN BED, SLEEPING, EASILY AROUSED. PATIENT IS ABLE TO MAKE NEEDS KNOWN. A/O X 4. PATIENT IS ON 2 L OF OXYGEN SUPPLEMENTATION, NO SOB NOTED AT REST. NO PAIN REPORTED AT THIS TIME. PATIENT HAS A LAC 18 G, R HAND 20 G IV ACCESS SALINE LOCKED. SAFETY MEASURES IN PLACE: BED LOCKED AND IN LOWEST POSITION, CALL LIGHT WITHIN REACH, SIDE RAILS UP. WILL MONITOR PATIENT CLOSELY.
[2021-06-03 20:00] VITALS: BP 134/98
[2021-06-04] MEDS: MORPHINE SULFATE INJ 2 MG/ML DISP.SYRIN IV PRN (01:15)
[2021-06-04 06:57] LABS: CALCIUM, SERUM 9.9 mg/dL (8.5-10.1); CARBON DIOXIDE 19 mmol/L (21-32); CHLORIDE 97 mmol/L (98-107); CREATININE 1.2 mg/dL (0.6-1.3); GLUCOSE 80 mg/dL (74-106); POTASSIUM 4.8 mmol/L (3.5-5.1); SODIUM SERUM 131 mmol/L (136-145); UREA NITROGEN, BLOOD 33 mg/dL (7-18)
--- NOTE | 2021-06-04 07:06 | NUR ---
RN CLOSING NOTE PATIENT IN BED, SLEEPING, EASILY AROUSED. PATIENT IS ABLE TO MAKE NEEDS KNOWN. A/O X 4. PATIENT IS ON 2 L OF OXYGEN SUPPLEMENTATION, NO SOB NOTED AT REST. NO PAIN REPORTED AT THIS TIME. PATIENT HAS R HAND 20 G IV ACCESS SALINE LOCKED. L AC 18 G REMOVED BY PT ACCIDENTALLY. SAFETY MEASURES IN PLACE: BED LOCKED AND IN LOWEST POSITION, CALL LIGHT WITHIN REACH, SIDE RAILS UP. ALL NEEDS MET AND ATTENDED, ALL ORDERS CARRIED OUT. WILL ENDORSE TO DAY SHIFT NURSE FOR PAM.
--- NOTE | 2021-06-04 07:08 | NUR ---
LAB CALLED IN CRITICAL LEVEL LACTIC ACID 2.3, WILL ENDORSE TO DAY SHIFT RN TO REPORT TO DAY MD.
--- NOTE | 2021-06-04 07:15 | NUR ---
PHYSICIAN OFFICE SECRETARY OPENING NOTE RECEIVED PATIENT ALERT AND ORIENTED X 4, NO COMPLAIN OF PAIN AND DISCOMFORT AT THIS TIME. WITH IV ACCESSES ON RIGHT HAND G20 ON SALINE LOCK, PATENT AND INTACT. ON OXYGEN AT 2LPM VIA NASAL CANULA. TOLERATED WELL. PATIENT KEPT ON NPO FOR CT OF THE ABDOMEN/ PELVIS WITH CONTRAST. SAFETY MEASURES ENSURED WITH BED LOCKED AND AT LOWEST POSITION. CALL LIGHT WITHIN REACH AT ALL TIMES. WILL CONTINUE TO MONITOR PATIENT.
[2021-06-04 07:23] LABS: BASOPHILS % (AUTO) 0.4 % (0.0-2.0); EOSINOPHILS % (AUTO) 0.2 % (0.0-6.0); HEMATOCRIT 43 % (33-45); HEMOGLOBIN 14.2 g/dL (11.5-14.8); LYMPHOCYTES # (AUTO) 1.3 K/uL (0.8-4.8); LYMPHOCYTES % (AUTO) 25.2 % (20.0-44.0); MEAN CORPUSCULAR HGB CONC 33 g/dl (31.0-36.0); MEAN CORPUSCULAR VOLUME 86 fL (82-100); MONOCYTES # (AUTO) 0.3 K/uL (0.1-1.30); MONOCYTES % (AUTO) 6.6 % (2.0-12.0); NEUTROPHILS # (AUTO) 3.4 K/uL (1.8-8.9); NEUTROPHILS % (AUTO) 67.6 % (43.0-81.0); PLATELET COUNT (AUTO) 270 K/uL (150-450)
[2021-06-04 08:00] VITALS: BP 147/95
[2021-06-04] MEDS ORDERED: IOHEXOL-300 100 ML VIAL IV ONE (08:36)
[2021-06-04] MEDS ORDERED: IV NS 0.9% 250 ML IV ONE (08:36)
--- NOTE | 2021-06-04 09:15 | NUR ---
MS RN NOTE PATIENT BROUGHT DOWN FOR PROCEDURE. IN STABLE CONDITION.
[2021-06-04] MEDS: ANASTROZOLE 1 MG TABLET PO SCH (09:50)
[2021-06-04] MEDS: PANTOPRAZOLE 40 MG TABLET.DR PO SCH (09:52)
[2021-06-04 10:07] LABS: *SPE A/G RATIO 0.5 (0.7-1.7); *SPE ALPHA-1-GLOBULIN 0.3 g/dL (0.0-0.4); *SPE ALPHA-2-GLOBULIN 0.8 g/dL (0.4-1.0); *SPE M-SPIKE 0.3 g/dL (Not Observed)
--- NOTE | 2021-06-04 10:30 | NUR ---
MS RN NOTE PATIENT BACK FROM PROCEDURE. IN STABLE CONDITION. WILL CONTINUE TO MONITOR PATIENT.
[2021-06-04 16:00] VITALS: BP 137/96
[2021-06-04] MEDS: RIVAROXABAN 10 MG TABLET PO SCH (16:43)
[2021-06-04] MEDS ORDERED: FUROSEMIDE 20 MG/2 ML VIAL IV SCH (17:30)
--- NOTE | 2021-06-04 18:59 | NUR ---
COMMUNITY ARTIST CLOSING NOTE RECEIVED PATIENT ALERT AND ORIENTED X 4, NO COMPLAIN OF PAIN AND DISCOMFORT AT THIS TIME. WITH IV ACCESSES ON RIGHT HAND G20 ON SALINE LOCK, PATENT AND INTACT. ON OXYGEN AT 2LPM VIA NASAL CANULA. TOLERATED WELL. SAFETY MEASURES ENSURED WITH BED LOCKED AND AT LOWEST POSITION. CALL LIGHT WITHIN REACH AT ALL TIMES. WILL CONTINUE TO MONITOR PATIENT.
[2021-06-04 20:36] VITALS: BP 151/88
--- NOTE | 2021-06-04 20:37 | NUR ---
MS RN OPENING NOTES RECEIVED PT IN BED, AWAKE, FAMILY MEMBER AT BEDSIDE. ON RA AND TOLERATING WELL. NO SOB NOTED. NO S/SX OF RESPIRATORY DISTRESS NOTED. IV ACCESS IN R HAND #20G. IV IS INTACT, PATENT AND FLUSHING WELL. NO COMPLAINTS OF PAIN AT THIS TIME. SAFETY PRECAUTIONS IN PLACE: BED IN LOWEST, LOCKED POSITION, BRAKES ON, SIDERAILS UPx2. CALL LIGHT AND TABLE WITHIN REACH. WILL CONTINUE TO MONITOR.
--- NOTE | 2021-06-05 06:29 | NUR ---
ATTEMPTED TO START NEW IV BUT PATIENT REFUSED AFTER 2 ATTEMPTS.
--- NOTE | 2021-06-05 06:36 | NUR ---
MS RN CLOSING NOTES PT IN BED, AWAKE, AOx4. ABLE TO MAKE NEEDS KNOWN. ON RA AND TOLERATING WELL. NO SOB NOTED. NO S/SX OF RESPIRATORY DISTRESS NOTED. IV ACCESS IN R HAND #20G. NO COMPLAINTS OF PAIN THROUGHOUT SHIFT. ALL NEEDS MET. PT KEPT CLEAN AND DRY. SAFETY PRECAUTIONS IN PLACE: BED IN LOWEST, LOCKED POSITION, BRAKES ON, SIDERAILS UPx2. CALL LIGHT AND TABLE WITHIN REACH. WILL ENDORSE TO ONCOMING SHIFT.
--- NOTE | 2021-06-05 07:47 | NUR ---
MS/RN OPENING NOTES RECEIVED PATIENT ON BED AWAKE ALERT AND ORIENTED X4. PATIENT IS ON ROOM AIR. PATIENT IN NO APPARENT RESPIRATORY DISTRESS NOTED. NO COMPLAINED OF PAIN NOTED AT THIS TIME. WILL CONTINUE TO MONITOR.
[2021-06-05] MEDS: PANTOPRAZOLE 40 MG TABLET.DR PO SCH (07:49)
[2021-06-05 08:00] VITALS: BP 156/99
[2021-06-05 08:06] LABS: IMMUNOGLOBULIN A, SERUM 875 mg/dL (87-352); IMMUNOGLOBULIN G, SERUM 2260 mg/dL (586-1602); IMMUNOGLOBULIN M, SERUM 87 mg/dL (26-217)
[2021-06-05] MEDS: ANASTROZOLE 1 MG TABLET PO SCH (08:16)
[2021-06-05] MEDS ORDERED: LACTULOSE 10 G/15 ML UDC (PYXIS) PO PRN (08:30)
--- NOTE | 2021-06-05 09:00 | NUR ---
MS/RN NOTES WEAN OXYGEN TO ROOM AIR WILL CONTINUE TO MONITOR.
--- NOTE | 2021-06-05 09:45 | NUR ---
MS/RN NOTES PATIENT REFUSED FOR REINSERTION OF IV ACCESS EXPLAINED THE RISK AND BENEFITS. MD WAS AWARE.
--- NOTE | 2021-06-05 12:28 | NUR ---
MS/RN NOTES PATIENT COMPLAINED OF SHORTNESS OF BREATH, 2L OXYGEN VIA NASAL CANNULA WAS IN PLACED. WILL CONTINUE TO MONITOR.
[2021-06-05] MEDS: MORPHINE SULFATE INJ 2 MG/ML DISP.SYRIN IV PRN (12:30)
[2021-06-05 16:00] VITALS: BP 137/90
[2021-06-05] MEDS: RIVAROXABAN 10 MG TABLET PO SCH (16:18)
[2021-06-05] MEDS: oxyCODONE IR immediate release 5 MG PO PRN (18:29)
--- NOTE | 2021-06-05 19:03 | NUR ---
MS/RN CLOSING NOTES PATIENT IS ON BED ALERT AND ORIENTED X4. PATIENT IS ON 2L OXYGEN VIA NASAL CANNULA. PATIENT IN NO APPARENT RESPIRATORY DISTRESS NOTED. NO COMPLAINED OF PAIN AT THIS TIME. SEEN AND EXAMINED BY MD WITH ORDERS MADE AND CARRIED OUT. ALL DUE MEDICATIONS WAS GIVEN.WOUND DRESSING DONE. SAFETY PRECAUTIONS WAS IN PLACED. BED IN LOWEST POSITION AND LOCKED. SIDE ARILS UP X2. CALL LIGHT WITHIN REACH. WILL ENDORSE TO SHIPPING CLERK/ADMIN RN FOR CONTINUITY OF CARE.
[2021-06-05 20:00] VITALS: BP 132/62
--- NOTE | 2021-06-05 20:19 | NUR ---
RN OPENING/PAM NOTE RECEIVED FROM JAIRO LAIRD. PATIENT IN BED, EYES CLOSED. EASILY AROUSED. PATIENT IS ON 2 L OF O2 SUPPLEMENTATION, TOLERATING WELL. NO SOB AT THIS TIME. PATIENT HAS A LAC 22 G, SALINE LOCKED. NO COMPLAINS OF PAIN AT THIS TIME. SAFETY MEASURES IN PLACE: BED LOCKED AND IN LOWEST POSITION, CALL LIGHT WITHIN REACH, SIDE RAILS UP. WILL MONITOR PATIENT CLOSELY.
--- NOTE | 2021-06-06 07:24 | NUR ---
RN CLOSING NOTE RN CLOSING NOTE PATIENT IN BED, EYES CLOSED. ABLE TO MAKE NEEDS KNOWN. ON 2 L O2 SUPPLEMENTATION. NO SOB OR RESPIRATORY DISTRESS NOTED. SAFETY MEASURES MAINTAINED, ALL NEEDS MET AND ATTENDED, ALL ORDERS CARRIED OUT. ENDORSED TO DAY SHIFT NURSE FOR PAM.
--- NOTE | 2021-06-06 07:30 | NUR ---
RECEIVED PT. IN AM ALERT AND ORIENTED X3,EASILY AGITATED,VS STABLE.
[2021-06-06 08:00] VITALS: BP 93/53
[2021-06-06] MEDS: PANTOPRAZOLE 40 MG TABLET.DR PO SCH (09:12)
[2021-06-06] MEDS: ANASTROZOLE 1 MG TABLET PO SCH (09:12)
[2021-06-06 15:34] LABS: BASOPHILS # (AUTO) 0.1 K/uL (0.0-0.2); EOSINOPHILS % (AUTO) 0.1 % (0.0-6.0); HEMOGLOBIN 14.6 g/dL (11.5-14.8)
[2021-06-06 15:40] LABS: BASOPHILS % (AUTO) 1.8 % (0.0-2.0); HEMATOCRIT 44 % (33-45); LYMPHOCYTES # (AUTO) 1.9 K/uL (0.8-4.8); LYMPHOCYTES % (AUTO) 41.7 % (20.0-44.0); MEAN CORPUSCULAR HGB CONC 33 g/dl (31.0-36.0); MEAN CORPUSCULAR VOLUME 86 fL (82-100); MONOCYTES # (AUTO) 0.2 K/uL (0.1-1.30); MONOCYTES % (AUTO) 4.5 % (2.0-12.0); NEUTROPHILS # (AUTO) 2.3 K/uL (1.8-8.9); NEUTROPHILS % (AUTO) 51.9 % (43.0-81.0); PLATELET COUNT (AUTO) 203 K/uL (150-450); RED BLOOD CELL COUNT(AUTO) 5.09 MIL/uL (4.0-5.2); WHITE BLOOD COUNT (AUTO) 4.5 K/uL (4.3-11.0)
[2021-06-06 15:52] LABS: CALCIUM, SERUM 10.3 mg/dL (8.5-10.1); CREATININE 1.7 mg/dL (0.6-1.3); MAGNESIUM 2.5 mg/dL (1.8-2.4); PHOSPHORUS 4.4 mg/dL (2.5-4.9); POTASSIUM 4.8 mmol/L (3.5-5.1)
[2021-06-06 16:00] VITALS: BP 140/97
[2021-06-06 16:59] LABS: BAND % (MANUAL) 1 % (0.0-5.0); LYMPHOCYTES % (MANUAL) 16 % (16-48); MONOCYTES % (MANUAL) 6 % (0-11.0); NEUTROPHILS % (MANUAL) 77 (42-76)
--- NOTE | 2021-06-06 17:30 | NUR ---
INITIALLY REFUSED LABS IN AM THEN ALLOWED DYNAMICS AX SOLUTION ARCHITECT TO DRAW LABS.
--- NOTE | 2021-06-06 18:00 | NUR ---
GRETEL FRIEND RUBIN AND MAURICE DHALIWAL IN TO SEE PT.
[2021-06-06] MEDS: RIVAROXABAN 10 MG TABLET PO SCH (18:46)
--- NOTE | 2021-06-06 19:00 | NUR ---
MS RN OPENING NOTE RECEIVED PT IN BED, RESTING A/O X3, PT STABLE ON 2L OXYGEN VIA NC. NO S/S OF RESPIRATORY DISTRESS. NO C/O PAIN AT THIS TIME. IV ACCESS IN LEFT AC # 20. IV IS INTACT, PATENT, AND FLUSHING WELL. SAFETY MEASURES MAINTAINED AT ALL TIMES. BED IN LOWEST LOCKED POSITION, HOB ELEVATED, SIDE RAILS UP X2. CALL LIGHT AND TABLE WITHIN REACH. WILL CONTINUE WITH PLAN OF CARE.
[2021-06-06 20:00] VITALS: BP 140/69
[2021-06-06] MEDS: MORPHINE SULFATE INJ 2 MG/ML DISP.SYRIN IV PRN (21:58)
--- NOTE | 2021-06-06 21:58 | NUR ---
PT C/O 8/10 GENERALIZED PAIN, PER PT REQUEST MORPHINE 2MG/1ML IV Q4H PRN ADMINISTERED AT THIS TIME PER ORDER. WILL CONTINUE TO MONITOR.
--- NOTE | 2021-06-07 06:30 | NUR ---
MS RN CLOSING NOTE PT AWAKE AND RESTING IN BED, STABLE ON 2L OXYGEN VIA NC. PT REMAINED STABLE THROUGHOUT SHIFT. ALL NEEDS, MEDICATIONS, AND CARE ADMINISTERED ANTICIPATED PER ORDER; PAIN CONTROL ADMINISTERED PER ORDER. SAFETY PRECAUTIONS IN PLACE AND MAINTAINED AT ALL TIMES. BED IN LOWEST, LOCKED POSITION, HOB ELEVATED, SIDE RAILS UP X2. CALL LIGHT AND TABLE WITHIN REACH. WILL ENDORSE TO AM SHIFT NURSE FOR PAM.
--- NOTE | 2021-06-07 07:20 | NUR ---
RN OPENING NOTE RECEIVED PATIENT IN BED. A/O X3. ON O2 AT 2 LPM VIA NC. NO S/S OF RESPIRATORY DISTRESS. IV ACCESS ON L AC #22 G, INTACT AND PATENT. SAFETY MEASURES MAINTAINED. BED IN LOWEST POSITION, BRAKES LOCKED. SIDE RAILS UP X2. CALL LIGHT WITHIN REACH. WILL CONTINUE PLAN OF CARE.
[2021-06-07 08:00] VITALS: BP 134/92
[2021-06-07] MEDS: PANTOPRAZOLE 40 MG TABLET.DR PO SCH (08:13)
[2021-06-07] MEDS: ANASTROZOLE 1 MG TABLET PO SCH (08:13)
[2021-06-07] MEDS: LACTULOSE 10 G/15 ML UDC (PYXIS) PO SCH ×2 (11:22→20:34)
[2021-06-07] MEDS: IV NS 0.9% 1,000 ML IV PRN (11:22)
[2021-06-07 16:00] VITALS: BP 146/89
[2021-06-07] MEDS: RIVAROXABAN 10 MG TABLET PO SCH (16:49)
--- NOTE | 2021-06-07 18:03 | NUR ---
RN CLOSING NOTE PATIENT RESTING IN BED. A/O X3. ON O2 AT 2 LPM VIA NC. IN NO APPARENT DISTRESS. IV ACCESS ON L AC #22 G, NS RUNNING AT 60 ML/HR, INTACT AND PATENT. DUE MEDS GIVEN ORDERED. ALL NEEDS HAVE BEEN MET AND ATTENDED. SAFETY MEASURES MAINTAINED. BED IN LOWEST POSITION, BRAKES LOCKED. SIDE RAILS UP X2. CALL LIGHT WITHIN REACH. WILL ENDORSE CONTINUITY OF CARE TO ONCOMING SHIFT.
--- NOTE | 2021-06-07 19:50 | NUR ---
RN NOTES PATIENT RESTING IN BED. A/O X3. ON O2 AT 2 LPM VIA NC. IN NO APPARENT DISTRESS, ALL NEEDS HAVE BEEN MET AND ATTENDED AT THIS TIME. SAFETY MEASURES MAINTAINED. BED IN LOWEST POSITION, BRAKES LOCKED. SIDE RAILS UP X2. CALL LIGHT WITHIN REACH. BSC NEXT TO BED WITHIN REACH. WILL CONTINUE TO MONITOR.
[2021-06-07 20:51] VITALS: BP 131/84
[2021-06-07] MEDS: oxyCODONE IR immediate release 5 MG PO PRN (21:19)
--- NOTE | 2021-06-07 21:24 | NUR ---
RN NOTES PT REPORTED PAIN 6/10 IN A NUMERIC PAIN SCALE PRN PAIN MEDICATION PROVIDED AT THIS TIME. TOLERATED WELL. WILL CONTINUE TO MONITOR.
[2021-06-07 21:40] LABS: BASOPHILS # (AUTO) 0.2 K/uL (0.0-0.2); BASOPHILS % (AUTO) 2.9 % (0.0-2.0); EOSINOPHILS % (AUTO) 0.2 % (0.0-6.0); HEMATOCRIT 43 % (33-45); HEMOGLOBIN 13.9 g/dL (11.5-14.8); LYMPHOCYTES # (AUTO) 2.8 K/uL (0.8-4.8); LYMPHOCYTES % (AUTO) 51.9 % (20.0-44.0); MEAN CORPUSCULAR HGB CONC 32 g/dl (31.0-36.0); MEAN CORPUSCULAR VOLUME 88 fL (82-100); MONOCYTES # (AUTO) 0.3 K/uL (0.1-1.30); MONOCYTES % (AUTO) 5.9 % (2.0-12.0); NEUTROPHILS # (AUTO) 2.1 K/uL (1.8-8.9); NEUTROPHILS % (AUTO) 39.1 % (43.0-81.0); PLATELET COUNT (AUTO) 187 K/uL (150-450); RED BLOOD CELL COUNT(AUTO) 4.87 MIL/uL (4.0-5.2); WHITE BLOOD COUNT (AUTO) 5.5 K/uL (4.3-11.0)
[2021-06-07 21:53] LABS: ALBUMIN 2.2 g/dL (3.4-5.0); CREATININE 1.8 mg/dL (0.6-1.3); POTASSIUM 4.3 mmol/L (3.5-5.1); TOTAL PROTEIN, SERUM 7.2 g/dL (6.4-8.2)
[2021-06-07 22:28] LABS: LYMPHOCYTES % (MANUAL) 33 % (16-48); MONOCYTES % (MANUAL) 5 % (0-11.0); NEUTROPHILS % (MANUAL) 62 (42-76)
--- NOTE | 2021-06-08 06:37 | NUR ---
RN NOTES PATIENT RESTING IN BED. A/O X3. ON O2 AT 2 LPM VIA NC. IN NO APPARENT DISTRESS, ALL NEEDS HAVE BEEN MET AND ATTENDED AT THIS TIME. SAFETY MEASURES MAINTAINED. BED IN LOWEST POSITION, BRAKES LOCKED. SIDE RAILS UP X2. IV ACCES ON THE R FOREARM 20 G PATEN INTACT.CALL LIGHT WITHIN REACH. BSC NEXT TO BED WITHIN REACH. WILL ENDORSE CARE.
--- NOTE | 2021-06-08 07:53 | NUR ---
MS RN OPENING NOTE RECEIVED PATIENT ASLEEP IN BED, EASY TO AROUSE. ALERT AND ORIENTED X 3. NO S/S OF DISTRESS NOTED. BREATHING IS EVEN AND UNLABORED. PT IS ON 2L OXYGEN VIA NC. IV ACCESS LAC#20 AND RFA#20 PATENT AND INTACT. SAFETY MEASURES MAINTAINED WITH BED LOCKED AT LOW POSITION AND SIDE RAILS UP X2. CALL LIGHT IS WITHIN REACH . WILL CONTINUE TO MONITOR THROUGHOUT SHIFT.
[2021-06-08] MEDS: ANASTROZOLE 1 MG TABLET PO SCH (08:23)
[2021-06-08] MEDS: LACTULOSE 10 G/15 ML UDC (PYXIS) PO SCH ×2 (08:23→20:05)
[2021-06-08] MEDS: PANTOPRAZOLE 40 MG TABLET.DR PO SCH (08:23)
[2021-06-08 11:44] LABS: CALCIUM, SERUM 10.9 mg/dL (8.5-10.1); CREATININE 1.8 mg/dL (0.6-1.3); MAGNESIUM 2.8 mg/dL (1.8-2.4); PHOSPHORUS 3.5 mg/dL (2.5-4.9); POTASSIUM 4.4 mmol/L (3.5-5.1)
[2021-06-08 11:57] LABS: BASOPHILS # (AUTO) 0.1 K/uL (0.0-0.2); BASOPHILS % (AUTO) 1.4 % (0.0-2.0); EOSINOPHILS % (AUTO) 0.6 % (0.0-6.0); HEMATOCRIT 44 % (33-45); HEMOGLOBIN 14.3 g/dL (11.5-14.8); LYMPHOCYTES # (AUTO) 2.2 K/uL (0.8-4.8); LYMPHOCYTES % (AUTO) 36.8 % (20.0-44.0); MEAN CORPUSCULAR HGB CONC 32 g/dl (31.0-36.0); MEAN CORPUSCULAR VOLUME 89 fL (82-100); MONOCYTES # (AUTO) 0.5 K/uL (0.1-1.30); NEUTROPHILS # (AUTO) 3.3 K/uL (1.8-8.9); NEUTROPHILS % (AUTO) 53.2 % (43.0-81.0); PLATELET COUNT (AUTO) 186 K/uL (150-450); WHITE BLOOD COUNT (AUTO) 6.1 K/uL (4.3-11.0)
[2021-06-08 13:06] LABS: LYMPHOCYTES % (MANUAL) 26 % (16-48); MONOCYTES % (MANUAL) 10 % (0-11.0); NEUTROPHILS % (MANUAL) 63 (42-76)
[2021-06-08] MEDS: RIVAROXABAN 10 MG TABLET PO SCH (17:21)
--- NOTE | 2021-06-08 19:28 | NUR ---
MS RN CLOSING NOTE PATIENT ASLEEP IN BED, EASY TO AROUSE. NO S/S OF DISTRESS NOTED. BREATHING IS EVEN AND UNLABORED. PT IS ON 2L OXYGEN VIA NC. IV ACCESS LAC#20 PATENT AND INTACT WITH NS @60MLS/HR. SAFETY MEASURES MAINTAINED WITH BED LOCKED AT LOW POSITION ND SIDE RAILS UP X2. CALL LIGHT IS WITHIN REACH . WILL ENDORSE CONTINUITY OF CARE TO ONCOMING SHIFT.
[2021-06-08 20:10] VITALS: BP 129/83
--- NOTE | 2021-06-08 20:51 | NUR ---
MS RN OPENING NOTES RECEIVED PT IN BED, AWAKE. PT IS AOx3. ON 2 L/MIN VIA NASAL CANNULA AND TOLERATING WELL. NO SOB NOTED. NO S/SX OF RESPIRATORY DISTRESS NOTED. IV ACCESS IN R FA #20 RUNNING NS @ 60 ML/HR. NO COMPLAINTS OF PAIN AT THIS TIME. SAFETY PRECAUTIONS IN PLACE: BED IN LOWEST, LOCKED POSITION, BRAKES ON, SIDERAILS UPx2. CALL LIGHT AND TABLE WITHIN REACH. WILL CONTINUE TO MONITOR.
--- NOTE | 2021-06-09 06:28 | NUR ---
PATIENT REFUSED TO HAVE BLOOD DRAWN. EDUCATED PATIENT ON IMPORTANCE OF BLOOD DRAWS BUT STILL REFUSED. BRICK AND BLOCK MASON MAY ATTEMPT AT A LATER TIME.
--- NOTE | 2021-06-09 06:47 | NUR ---
MS RN CLOSING NOTES PT IN BED, ASLEEP, AWAKENS TO VERBAL STIMULI. PT IS AOx3. ON 2 L/MIN VIA NASAL CANNULA AND TOLERATING WELL. NO SOB NOTED. NO S/SX OF RESPIRATORY DISTRESS NOTED. IV ACCESS IN R FA #20 RUNNING NS @ 60 ML/HR. NO COMPLAINTS OF PAIN THROUGHOUT SHIFT. ALL NEEDS MET. PT KEPT CLEAN AND DRY. SAFETY PRECAUTIONS IN PLACE: BED IN LOWEST, LOCKED POSITION, BRAKES ON, SIDERAILS UPx2. CALL LIGHT AND TABLE WITHIN REACH. WILL ENDORSE TO ONCOMING SHIFT.
--- NOTE | 2021-06-09 07:58 | NUR ---
MS/RN OPENING NOTES RECEIVED PATIENT IN BED, ASLEEP, AWAKENS TO VERBAL STIMULI. PT IS AOx3. ON 2 L/MIN VIA NASAL CANNULA AND TOLERATING WELL. NO SOB NOTED. NO S/SX OF RESPIRATORY DISTRESS NOTED. CONTINENT AND USES BEDSIDE COMMODE. IV ACCESS IN RIGHT FA #20 RUNNING NS @ 60 ML/HR. SAFETY PRECAUTIONS IN PLACE: BED IN LOWEST, LOCKED POSITION, BRAKES ON, SIDERAILS UPx2. CALL LIGHT AND TABLE WITHIN REACH. WILL CONTINUE WITH THE PLAN OF CARE.
[2021-06-09] MEDS: PANTOPRAZOLE 40 MG TABLET.DR PO SCH (08:13)
[2021-06-09] MEDS: LACTULOSE 10 G/15 ML UDC (PYXIS) PO SCH (08:13)
[2021-06-09] MEDS: ANASTROZOLE 1 MG TABLET PO SCH (08:13)
[2021-06-09] MEDS: MORPHINE SULFATE INJ 2 MG/ML DISP.SYRIN IV PRN (09:48)
[2021-06-09 12:39] LABS: CALCIUM, SERUM 11.1 mg/dL (8.5-10.1); CREATININE 1.6 mg/dL (0.6-1.3); MAGNESIUM 2.8 mg/dL (1.8-2.4); PHOSPHORUS 2.5 mg/dL (2.5-4.9)
[2021-06-09 12:45] LABS: BASOPHILS # (AUTO) 0.2 K/uL (0.0-0.2); BASOPHILS % (AUTO) 3.3 % (0.0-2.0); EOSINOPHILS % (AUTO) 0.1 % (0.0-6.0); HEMATOCRIT 44 % (33-45); HEMOGLOBIN 13.7 g/dL (11.5-14.8); LYMPHOCYTES # (AUTO) 2.2 K/uL (0.8-4.8); MEAN CORPUSCULAR HGB CONC 31 g/dl (31.0-36.0); MEAN CORPUSCULAR VOLUME 90 fL (82-100); MONOCYTES # (AUTO) 0.5 K/uL (0.1-1.30); MONOCYTES % (AUTO) 7.5 % (2.0-12.0); NEUTROPHILS # (AUTO) 3.7 K/uL (1.8-8.9); NEUTROPHILS % (AUTO) 56.1 % (43.0-81.0); PLATELET COUNT (AUTO) 170 K/uL (150-450); RED BLOOD CELL COUNT(AUTO) 4.83 MIL/uL (4.0-5.2); WHITE BLOOD COUNT (AUTO) 6.5 K/uL (4.3-11.0)
[2021-06-09] MEDS ORDERED: FUROSEMIDE 40 MG/4 ML VIAL IV ONE (13:30)
[2021-06-09 13:56] LABS: LYMPHOCYTES % (MANUAL) 21 % (16-48); MONOCYTES % (MANUAL) 5 % (0-11.0); NEUTROPHILS % (MANUAL) 74 (42-76)
[2021-06-09] MEDS: PAMIDRONATE 90 MG in IV NS 0.9% 500 ML IV ONE ×2 (15:21→16:33)
[2021-06-09] MEDS: RIVAROXABAN 10 MG TABLET PO SCH (16:54)
[2021-06-09 18:17] VITALS: BP 118/75
--- NOTE | 2021-06-09 18:30 | NUR ---
MS/RN NOTES- IV PULLED OUT PATIENT'S IV WAS PULLED OUT, PATIENT SEEN SITTING IN THE COMMODE WITH IV ACCESS PULLED OUT. REFUSED FOR RN TO ESTABLISH ANOTHER IV ACCESS. WILL NOTIFY DOCTOR.
--- NOTE | 2021-06-09 19:26 | NUR ---
MS/RN CLOSING NOTES PATIENT IN BED, ASLEEP, AWAKENS TO VERBAL STIMULI. PT IS AOx2. STABLE ON ROOM AIR. NO SOB NOTED. NO S/SX OF RESPIRATORY DISTRESS NOTED. CONTINENT AND USES BEDSIDE COMMODE. IV ACCESS PULLED OUT AND REPORTED TO DR. ISRA MD ORDERED A 1 ON 1 SITTER. SAFETY PRECAUTIONS IN PLACE: BED IN LOWEST, LOCKED POSITION, BRAKES ON, SIDERAILS UPx2. CALL LIGHT AND TABLE WITHIN REACH. WILL ENDORSE TO THE NEXT SHIFT FOR PAM.
[2021-06-09] MEDS ORDERED: FUROSEMIDE 20 MG/2 ML VIAL IV SCH (19:30)
[2021-06-09 20:00] VITALS: BP 103/82
--- NOTE | 2021-06-09 22:42 | NUR ---
MS RN OPENING NOTES RECEIVED PT IN BED @1930, AWAKE. PT IS AOx3. ON 2 L/MIN VIA NASAL CANNULA AND TOLERATING WELL. NO SOB NOTED. NO S/SX OF RESPIRATORY DISTRESS NOTED. NO CURRENT IV ACCESS. WILL ATTEMPT TO PLACE IV. NO COMPLAINTS OF PAIN AT THIS TIME. SAFETY PRECAUTIONS IN PLACE: BED IN LOWEST, LOCKED POSITION, BRAKES ON, SIDERAILS UPx2. CALL LIGHT AND TABLE WITHIN REACH. WILL CONTINUE TO MONITOR.
--- NOTE | 2021-06-09 22:49 | NUR ---
MS RN NOTE PT REMOVED PREVIOUS IV ACCESS. INSERTED RFA #20G S/L; PATENT AND INTACT.
--- NOTE | 2021-06-10 01:30 | NUR ---
MS RN NOTE PT REMOVED RFA #20G; NO ACTIVE BLEEDING NOTED.
--- NOTE | 2021-06-10 01:40 | NUR ---
SPOKE TO DR. CHAMORRO WHO ALLOWED ORDER FOR RESTRAINTS SINCE PATIENT HAS BEEN PULLING OUT ALL IVs.
--- NOTE | 2021-06-10 01:45 | NUR ---
MS RN NOTE - PT AGITATED AND REFUSED SOFT RESTRAINTS. EDUCATED PT TO NOT PULL OUT IV ACCESS AGAIN. IVF ON HOLD TO PREVENT PT FROM PULL OUT IV ACCESS. R WRIST #24G S/L; PATENT AND INTACT.
--- NOTE | 2021-06-10 06:05 | NUR ---
MS RN NOTE - CT PT UNABLE TO SIGN CONSENT FORM FOR CT W/O CONTRAST OF HEAD. LEFT VOICE MESSAGE TO KAJAL (SON) .
--- NOTE | 2021-06-10 06:28 | NUR ---
MS RN NOTE GOT VERBAL CONSENT FOR CT HEAD W/O CONTRAST FROM SON KAJAL VIA PHONE CALL WITH BRAD WITNESS CONSENT.
--- NOTE | 2021-06-10 06:40 | NUR ---
MS RN CLOSING NOTES PATIENT IN BED, ASLEEP. PT IS AOx2. ON AND OFF 2LPM VIA N/C; ON R/A AT THIS MOMENT AND TOLERATING WELL. NO S/SX OF RESPIRATORY DISTRESS NOTED. R WRIST #24G S/L; PATENT AND INTACT. SAFETY PRECAUTIONS IN PLACE: BED IN LOWEST LOCKED, LOCKED POSITION, SIDE RAILS UPx2. CALL LIGHT WITHIN REACH. WILL ENDORSE PLAN OF CARE TO MORNING SHIFT.
[2021-06-10 08:36] VITALS: BP 137/76
[2021-06-10] MEDS: PANTOPRAZOLE 40 MG TABLET.DR PO SCH (10:08)
[2021-06-10] MEDS: ANASTROZOLE 1 MG TABLET PO SCH (10:09)
[2021-06-10] MEDS: LACTULOSE 10 G/15 ML UDC (PYXIS) PO SCH (10:09)
[2021-06-10 13:29] LABS: BASOPHILS % (AUTO) 0.7 % (0.0-2.0); EOSINOPHILS % (AUTO) 0.2 % (0.0-6.0); HEMATOCRIT 44 % (33-45); HEMOGLOBIN 13.7 g/dL (11.5-14.8); LYMPHOCYTES # (AUTO) 1.9 K/uL (0.8-4.8); LYMPHOCYTES % (AUTO) 30.1 % (20.0-44.0); MEAN CORPUSCULAR HGB CONC 32 g/dl (31.0-36.0); MEAN CORPUSCULAR VOLUME 91 fL (82-100); MONOCYTES # (AUTO) 0.4 K/uL (0.1-1.30); MONOCYTES % (AUTO) 6.5 % (2.0-12.0); NEUTROPHILS % (AUTO) 62.5 % (43.0-81.0); PLATELET COUNT (AUTO) 147 K/uL (150-450); RED BLOOD CELL COUNT(AUTO) 4.81 MIL/uL (4.0-5.2); WHITE BLOOD COUNT (AUTO) 6.4 K/uL (4.3-11.0)
[2021-06-10 13:34] LABS: CALCIUM, SERUM 10.8 mg/dL (8.5-10.1); CREATININE 1.6 mg/dL (0.6-1.3); MAGNESIUM 2.7 mg/dL (1.8-2.4); PHOSPHORUS 2.4 mg/dL (2.5-4.9); POTASSIUM 3.6 mmol/L (3.5-5.1)
[2021-06-10 14:17] LABS: LYMPHOCYTES % (MANUAL) 17 % (16-48); MONOCYTES % (MANUAL) 2 % (0-11.0); NEUTROPHILS % (MANUAL) 81 (42-76)
[2021-06-10] MEDS ORDERED: K PHOS NEUTRAL 250 MG TABLET PO ONE (15:30)
[2021-06-10 16:21] VITALS: BP 145/92
[2021-06-10] MEDS: RIVAROXABAN 10 MG TABLET PO SCH (17:12)
--- NOTE | 2021-06-10 18:49 | NUR ---
CHANGE OF SHIFT REPORT PT RESTING COMFORTABLY IN BED. NO S/S OR C/O PAIN OR DISTRESS NOTED. SIDE RAILS UP X2, CALL LIGHT LEFT WITHIN REACH. PT KEPT CLEAN, DRY, AND COMFORTABLE. NO SIGNIFICANT CHANGES SINCE PREVIOUS SHIFT.
--- NOTE | 2021-06-10 19:30 | NUR ---
Patient is A&Ox2. Denies pain or discomfort. Stating she feels "okay." Still no IV access. MD aware. awaiting midline insertion. Will attempt to obtain urine sample for UA.
[2021-06-10 20:01] VITALS: BP 131/87
--- NOTE | 2021-06-10 20:43 | NUR ---
patient tried to urinate for urine sample but mixed with stool. will try again. reminded patient of importance of clean cath urine sample.
--- NOTE | 2021-06-10 22:12 | NUR ---
urine specimen collected. Labeled and put in biohazard fridge.
[2021-06-10 23:13] LABS: BILIRUBIN,URINE LARGE (NEGATIVE); COLOR,URINE YELLOW (YELLOW); LEUKOCYTE ESTERASE ,URINE TRACE (NEGATIVE); NITRITE, URINE NEGATIVE (NEGATIVE); PH,URINE 5.5 (5.0-8.0); PROTEIN,URINE TRACE mg/dl (NEGATIVE); UGLUCOSE NEGATIVE (NEGATIVE)
[2021-06-10 23:22] LABS: BACTERIA,URINE Many /HPF (None Seen); RBC,URINE 0-2 /HPF (0-2); SQUAMOUS EPITHELIAL CELL,UR Few /HPF (None Seen); URINE AMORPHOUS URATE Many /HPF (None Seen); WBC,URINE 0-2 /HPF (0-3)
--- NOTE | 2021-06-11 00:30 | NUR ---
midline insertion successful from Luis Fernando REYES midline #[id number].
--- NOTE | 2021-06-11 01:08 | NUR ---
Patient uncooperative when being attached to IVF -pulling at tubing. Disconnected patient from IVF and wrapped midline with burn net.
[2021-06-11] MEDS: oxyCODONE IR immediate release 5 MG PO PRN ×2 (02:18→21:17)
--- NOTE | 2021-06-11 02:21 | NUR ---
patient took off burn net covering midline. reoriented patient that she needs to keep it in place. Reapplied burn net. wrapped in kerlix. wrapped with tape and another burn net on top.
--- NOTE | 2021-06-11 06:50 | NUR ---
Patient A&Ox2. able to follow simple instructions but can wake up forgetful. Midline still in place and patent. pt continues to refuse iv hydration. Able to use restroom using BSC safely. frequent pt checks. Denies SOB. medication for generalized body pain x1 with relief. no signs of distress.
--- NOTE | 2021-06-11 07:16 | NUR ---
RN NOTES SEEN PATIENT RESTING IN BED, EYES CLOSED, ABLE TO BE AWAKENED. A/O X1-2, VERBALLY RESPONSIVE. BREATHING EVEN AND UNLABORED ON ROOM AIR, PRN O2 PER TAX MANAGER REPORT. AMY MIDLINE INTACT AND PATENT. ABLE TO USE BSC W/ ASSISTANCE. SAFETY MEASURES IN PLACE. WILL CONTINUE TO MONITOR.
[2021-06-11 07:25] LABS: BASOPHILS # (AUTO) 0.1 K/uL (0.0-0.2); BASOPHILS % (AUTO) 1.1 % (0.0-2.0); EOSINOPHILS % (AUTO) 0.1 % (0.0-6.0); HEMATOCRIT 46 % (33-45); HEMOGLOBIN 14.5 g/dL (11.5-14.8); LYMPHOCYTES # (AUTO) 2.3 K/uL (0.8-4.8); LYMPHOCYTES % (AUTO) 37.1 % (20.0-44.0); MEAN CORPUSCULAR HGB CONC 32 g/dl (31.0-36.0); MEAN CORPUSCULAR VOLUME 90 fL (82-100); MONOCYTES # (AUTO) 0.4 K/uL (0.1-1.30); MONOCYTES % (AUTO) 6.1 % (2.0-12.0); NEUTROPHILS # (AUTO) 3.4 K/uL (1.8-8.9); NEUTROPHILS % (AUTO) 55.6 % (43.0-81.0); PLATELET COUNT (AUTO) 151 K/uL (150-450); RED BLOOD CELL COUNT(AUTO) 5.05 MIL/uL (4.0-5.2); WHITE BLOOD COUNT (AUTO) 6.2 K/uL (4.3-11.0)
[2021-06-11 07:29] LABS: CALCIUM, SERUM 10.9 mg/dL (8.5-10.1); CREATININE 1.6 mg/dL (0.6-1.3); MAGNESIUM 2.7 mg/dL (1.8-2.4); PHOSPHORUS 2.6 mg/dL (2.5-4.9); POTASSIUM 3.6 mmol/L (3.5-5.1)
--- NOTE | 2021-06-11 08:36 | NUR ---
RN NOTES RECEIVED CALL FROM SISTER BRUNER ([phone]), AND INQUIRED IF SHE'S OK TO RECEIVE INFORMATION REGARDING PATIENT'S CONDITION/UPDATE.
[2021-06-11 08:40] VITALS: BP 128/76
[2021-06-11] MEDS: PANTOPRAZOLE 40 MG TABLET.DR PO SCH (08:44)
[2021-06-11] MEDS: LACTULOSE 10 G/15 ML UDC (PYXIS) PO SCH (08:45)
[2021-06-11] MEDS: ANASTROZOLE 1 MG TABLET PO SCH (08:45)
--- NOTE | 2021-06-11 09:29 | NUR ---
RN NOTES PHYSICAL THERAPIST CURRENTLY AT BEDSIDE W/ PATIENT.
[2021-06-11 09:56] LABS: BAND % (MANUAL) 1 % (0.0-5.0); EOSINOPHILS % (MANUAL) 1 % (0-4); LYMPHOCYTES % (MANUAL) 13 % (16-48); MONOCYTES % (MANUAL) 6 % (0-11.0); NEUTROPHILS % (MANUAL) 79 (42-76)
--- NOTE | 2021-06-11 10:22 | NUR ---
RN NOTES PATIENT W/ ORDER FOR MRI BRAIN W/O CONTRAST. INFORMED PATIENT ABOUT PROCEDURE BUT PATIENT REFUSED. EXPLAINED IMPORTANCE OF PROCEDURE BUT PATIENT INSISTED ON REFUSING. BUDGET CONTROLLER AT BEDSIDE AND ALSO INFORMED ABOUT REFUSAL.
--- NOTE | 2021-06-11 11:00 | NUR ---
RN NOTES SPOKE W/ LISSA RAMIREZ; PER CM, SHARLA LAYTON, SISTER, WILL BE THE POINT OF CONTACT FOR PATIENT.
--- NOTE | 2021-06-11 11:30 | NUR ---
RN NOTES PATIENT SEEN BY MAURICE FREEMAN, FOR ONCO F/U; INFORMED THAT PATIENT REFUSED MRI OF HEAD W/O CONTRAST. WILL INFORM DR. MAJANO.
[2021-06-11] MEDS ORDERED: PAMIDRONATE 90 MG in IV NS 0.9% 500 ML IV ONE (13:00)
[2021-06-11] MEDS: RIVAROXABAN 10 MG TABLET PO SCH (16:23)
--- NOTE | 2021-06-11 16:23 | NUR ---
RN NOTES SPOKE W/ NORY FROM [facility]; PER NORY, DR. MCLAIN ORDERED FOR HOSPICE EVAL FOR PATIENT AND REQUESTED FOR INFORMATION.
[2021-06-11 16:45] VITALS: BP 136/73
--- NOTE | 2021-06-11 18:46 | NUR ---
RN NOTES PATIENT RESTING IN BED, ABLE TO BE AWAKENED, VERBALLY RESPONSIVE. BREATHING EVEN AND UNLABORED, NOT IN ACUTE DISTRESS. IV AND PO MEDS GIVEN; IVF PAUSED AT THIS TIME PER PATIENT'S REQUEST. USED BSC W/ ASSIST; ASSISTED W/ MEALS AND BED MOBILITY TOLERATED. SAFETY MEASURES MAINTAINED. WILL ENDORSE TO SUPERVISORY AIR INTERCEPT CONTROLLER RN FOR PAM.
--- NOTE | 2021-06-11 20:00 | NUR ---
Patient refused 2000 vitals. will try again later.
--- NOTE | 2021-06-11 21:00 | NUR ---
Patient pulled off midline wrapping and pulled off/broke the tubing from midline but catheter still in place and at skin 0mm exposed. minimal bleeding cleaned up. Antimicrobial patch and dressing still intact. nurse removed dressing to reapply new tubing and re-dressed using sterile technique. Catheter completely in still -nothing to measure. wrapped with burn net then kerlix then wrapped in tape and covered with burn net -making sure not to be too tight or restrictive. Reeducated patient not to pull at line she is endangering herself and may have to be restrained. patient states she feels very anxious when she is restrained and will scream and kick. Will make frequent checks on patient.
[2021-06-12] VITALS: BP 150/79
--- NOTE | 2021-06-12 07:20 | NUR ---
Patient midline still in place and patent. overnight patient has been A&Ox2 at time but can wake up confused A&Ox1 taking off clothes and blankets and trying to remove lines. refusing ns IVF. All safety measures in place.
--- NOTE | 2021-06-12 07:24 | NUR ---
RN NOTES SEEN PATIENT RESTING IN BED, EYES CLOSED, ABLE TO BE AWAKENED. A/O X1-2, VERBALLY RESPONSIVE. BREATHING EVEN AND UNLABORED ON ROOM AIR. AMY MIDLINE INTACT AND PATENT, STILL REFUSES IVF PER NIGHT NURSE. ABLE TO USE BSC W/ ASSISTANCE. COMFORT AND SAFETY MEASURES PROVIDED. WILL CONTINUE TO MONITOR.
[2021-06-12 08:00] VITALS: BP 138/87
[2021-06-12] MEDS: LACTULOSE 10 G/15 ML UDC (PYXIS) PO SCH (08:44)
[2021-06-12] MEDS: PANTOPRAZOLE 40 MG TABLET.DR PO SCH (08:44)
[2021-06-12] MEDS: ANASTROZOLE 1 MG TABLET PO SCH (08:44)
--- NOTE | 2021-06-12 11:08 | NUR ---
RN NOTES PROGRAMMING ENGINEER ASSOCIATE OF DR. MCLAIN CURRENTLY IN UNIT TO SEE PATIENT. PER PROGRAMMING ENGINEER, PATIENT IS TO BE DISCHARGED W/ HOSPICE CARE AND WILL COORDINATE W/ PIANO INSTRUCTOR. DR. MCLAIN ALREADY SPOKE W/ THE FAMILY AND AGREED W/ PLAN OF CARE.
[2021-06-12] MEDS: oxyCODONE IR immediate release 5 MG PO PRN (11:27)
[2021-06-12 16:00] VITALS: BP 150/90
[2021-06-12] MEDS: RIVAROXABAN 10 MG TABLET PO SCH (16:16)
--- NOTE | 2021-06-12 17:26 | NUR ---
RN NOTES LISSA RAMIREZ, CURRENTLY IN CONTACT W/ LISSA CUETO, REGARDING PATIENT'S DME NEEDS UPON DISCHARGE.
--- NOTE | 2021-06-12 18:50 | NUR ---
RN NOTES PATIENT IN BED RESTING, NOT IN ACUTE DISTRESS. VERBALLY RESPONDS TO SIMPLE QUESTIONS. BREATHING EVEN AND NON-LABORED, TOLERATING ROOM AIR. ASSISTED PATIENT TO BSC TOLERATED. REFUSED MEALS TODAY, BUT ABLE TO DRINK FLUIDS; ENCOURAGED THROUGHOUT THE SHIFT. DUE MEDS TAKEN BY PATIENT. AMY MIDLINE INTACT AND PATENT. PATIENT REFUSED IVF. SAFETY MEASURES MAINTAINED. WILL ENDORSE TO HEEL SPRAYER RN FOR PAM.
--- NOTE | 2021-06-12 19:45 | NUR ---
MS RN NOTES RECEIVED ON BED SLEEPING WITH HEAD ON THE FOOT PART,BREATHING REGULAR,NOT IN ANY FORM OF DISTRESS,WITH AMY MIDLINE,REFUSED IVF FLUIDS.DNR/DNI STATUS,AWAITING HOSPICE EVALUATION,FAMILY OK WITH IT,CALL LIGHT IN REACH,NEEDS ANTICIPATED.
[2021-06-12 20:00] VITALS: BP 134/73
--- NOTE | 2021-06-13 03:00 | NUR ---
MS RN NOTES AWAKE,OUT OF BED,SITTING ON BEDSIDE CHAIR,ABLE TO GO BACK TO BED WITH ASSIST, NO FALL,NO INJURY,NOTED LEFT BREAST DRY LESIONS,OPEN TO AIR
--- NOTE | 2021-06-13 06:31 | NUR ---
MS RN NOTES APPEARS WEAK,REFUSED IV FLUID,ASSIST WITH ADL'S,DNR/DNI STATUS.POSSIBLE D/C TO HOME UNDER HOSPICE CARE.WILL ENDORSE TO DAY NURSE FOR PAM
--- NOTE | 2021-06-13 07:30 | NUR ---
MS RN OPENING NOTES RECEIVED PATIENT ON BED, AWAKE AND A/O X1-2. ON ROOM AIR TOLERATING WELL. NO SOB NOTED. NOT IN DISTRESS. WITH NO COMPLAINTS OF PAIN OR DISCOMFORT AT THIS TIME. WITH IV ACCESS AT RIGHT UPPER MIDLINE, SALINE LOCKED, INTACT AND PATENT. SAFETY MEASURES IN PLACE. CALL LIGHT WITHIN REACH. BED ON LOWEST AND LOCKED POSITION. SIDE RAILS UP X2. WILL CONTINUE TO MONITOR.
--- NOTE | 2021-06-13 07:30 | NUR ---
MS LAIRD OPENING NOTES RECEIVED PATIENT ON BED, AWAKE AND A/O X4. ON ROOM AIR TOLERATING WELL. NO SOB NOTED. NOT IN DISTRESS. WITH NO COMPLAINTS OF PAIN OR DISCOMFORT AT THIS TIME. WITH IV ACCESS AT RIGHT UPPER MIDLINE, SALINE LOCKED, INTACT AND PATENT. SAFETY MEASURES IN PLACE. CALL LIGHT WITHIN REACH. BED ON LOWEST AND LOCKED POSITION. SIDE RAILS UP X2. WILL CONTINUE TO MONITOR. Addendum: 06/13/21 at 0938 by ANTONIA YOUNG RN DOCUMENTED ON WRONG PATIENT.
[2021-06-13] MEDS: PANTOPRAZOLE 40 MG TABLET.DR PO SCH (07:42)
[2021-06-13] MEDS: ANASTROZOLE 1 MG TABLET PO SCH (08:34)
[2021-06-13] MEDS: LACTULOSE 10 G/15 ML UDC (PYXIS) PO SCH (08:34)
[2021-06-13 08:58] VITALS: BP 132/76
[2021-06-13] MEDS: IV NS 0.9% 1,000 ML IV PRN (10:53)
[2021-06-13 12:20] LABS: CALCIUM, SERUM 10.3 mg/dL (8.5-10.1); CREATININE 1.7 mg/dL (0.6-1.3); POTASSIUM 3.8 mmol/L (3.5-5.1)
[2021-06-13 12:53] LABS: ALBUMIN 1.9 g/dL (3.4-5.0); BILIRUBIN,TOTAL 15.9 mg/dL (0.2-1.0); TOTAL PROTEIN, SERUM 6.5 g/dL (6.4-8.2)
[2021-06-13] MEDS: oxyCODONE IR immediate release 5 MG PO PRN (13:26)
[2021-06-13] MEDS: RIVAROXABAN 10 MG TABLET PO SCH (16:05)
[2021-06-13 16:13] VITALS: BP 134/76
--- NOTE | 2021-06-13 18:39 | NUR ---
MS RN CLOSING NOTES PATIENT RESTING ON BED, AWAKE AND A/O X1-2, UNCOOPERATIVE. ON ROOM AIR TOLERATING WELL. NO SOB NOTED. WITH NO COMPLAINTS OF PAIN OR DISCOMFORT AT THIS TIME. WITH IV ACCESS AT RIGHT UPPER MIDLINE, SALINE LOCKED, INTACT AND PATENT. PATIENT REFUSED TO BE CLEANED AND HAVE HER LINENS CHANGED. SAFETY MEASURES IN PLACE. CALL LIGHT WITHIN REACH. BED ON LOWEST AND LOCKED POSITION. SIDE RAILS UP X2. WILL ENDORSE TO NEXT SHIFT FOR PAM.
--- NOTE | 2021-06-13 19:45 | NUR ---
MS RN NOTES RECEIVED LAYING COMFORTABLY ON BED,EYES CLOSED,NAKED,REFUSED HOSPITAL GOWN,SAYS IT STICK TO HER LEFT BREAST CA.BREATHING NON LABORED,FALL PRECAUTION OBSERVED BED ON LOWEST POSITION AND LOCKED,ASSIST WITH ADL'S.WITH MIDLINE AMY INTACT AND PATENT,IVF NS AT 60ML/HR RATE IN PROGRESS.DNR/DNI STATUS.WILL CONTINUE TO MONITOR STATUS.
[2021-06-13 20:00] VITALS: BP 152/77
[2021-06-13 20:12] VITALS: BP 152/77
[2021-06-14 00:26] VITALS: BP 131/72
[2021-06-14] MEDS: IV NS 0.9% 1,000 ML IV PRN (05:15)
--- NOTE | 2021-06-14 06:37 | NUR ---
MS RN NOTES NO CHANGE IN STATUS,BREATHING NORMAL,IVF IN PROGRESS,LEFT BREAST LESIONS DRY,REFUSED TO WEAR HOSPITAL GOWN,D/C PLANNING TO HOME UNDER HOSPICE CARE.
--- NOTE | 2021-06-14 07:30 | NUR ---
MS RN OPENING NOTE RECEIVED PT IN BED WITH EYES CLOSED, EASY TO AROUSE. A/O X1-2. PT IS STABLE ON ROOM AIR TOLERATING WELL. NO SOB OR S/S OF RESPIRATORY DISTRESS NOTED. PT HAS NO SIGNS OF PAIN SUCH FACIAL GRIMACING AT THIS TIME. IV ACCESS IN AMY MIDLINE INFUSING NS AT 60 ML/HR, INTACT AND PATENT. SAFETY PRECAUTIONS MAINTAINED. BED IN LOWEST LOCKED POSITION, HOB ELEVATED, SIDE RAILS UP X2. CALL LIGHT AND TABLE WITHIN REACH. WILL CONTINUE TO MONITOR.
[2021-06-14] MEDS: PANTOPRAZOLE 40 MG TABLET.DR PO SCH (07:40)
[2021-06-14] MEDS: LACTULOSE 10 G/15 ML UDC (PYXIS) PO SCH (08:56)
[2021-06-14] MEDS: ANASTROZOLE 1 MG TABLET PO SCH (08:56)
[2021-06-14] MEDS ORDERED: MORPHINE SULFATE INJ 4 MG/ML DISP.SYRIN IV PRN (14:00)
--- NOTE | 2021-06-14 17:05 | NUR ---
m/s scientific illustrator: notes report given to deana (rn supervisor lathing) from [facility] for continuity of care.
--- NOTE | 2021-06-14 17:35 | NUR ---
MS BATTERY SERVICE TECHNICIAN NOTE PT DISCHARGED TO [facility] AT THIS TIME. PT IS MEDICALLY STABLE AND CLEARED FOR DISCHARGE BY DR. MCLAIN. ALL PT CARE, NEEDS, MEDICATIONS, AND TREATMENT ADMINISTERED PER ORDER. DISCHARGE INSTRUCTIONS PROVIDED TO PT. PT KEPT CLEAN AND DRY. NO PICTURES TAKEN DUE TO HOSPICE STATUS. BELONGINGS LIST ACCOUNTED FOR. PT UNABLE TO SIGN DUE TO CONDITION. IV ACCESS REMOVED, PRESSURE APPLIED, AND SECURED WITH GAUZE AND TAPE. NO SIGNS OF BLEEDING NOTED. ID BAND REMOVED. PT TRANSPORTED VIA GURNEY BY 2 EMT'S. [place]ES CHARGE NURSE AND DR. MCLAIN AWARE.
== END 2021-06-14 17:37 | DRG 133 ==
LOC: ER 07:12 → TRANSITION 10:37 → TELE 20:27 → MED 06-02 10:14
PROVIDERS: ADMIT Internal Medicine; ATTEND Nurse Practitioner Acute Care
PROC: 05H933Z Insertion of Infusion Device into Right Brachial Vein, Percutaneous Approach (ICD-10-PCS; principal; 2021-06-11)
DX: J96.01 Acute respiratory failure with hypoxia (principal); N17.0 Acute kidney failure with tubular necrosis; I50.33 Acute on chronic diastolic (congestive) heart failure; G93.41 Metabolic encephalopathy; E43 Unspecified severe protein-calorie malnutrition; I21.A1 Myocardial infarction type 2; C77.9 Secondary and unspecified malignant neoplasm of lymph node, unspecified; K72.90 Hepatic failure, unspecified without coma; C78.7 Secondary malignant neoplasm of liver and intrahepatic bile duct; E87.2 Acidosis; C50.912 Malignant neoplasm of unspecified site of left female breast; I11.0 Hypertensive heart disease with heart failure; Z20.822 Contact with and (suspected) exposure to COVID-19; Z66 Do not resuscitate; Z98.84 Bariatric surgery status; Z88.2 Allergy status to sulfonamides; Z79.01 Long term (current) use of anticoagulants; Z79.899 Other long term (current) drug therapy; Z86.711 Personal history of pulmonary embolism; I25.10 Atherosclerotic heart disease of native coronary artery without angina pectoris; Z51.5 Encounter for palliative care; J98.11 Atelectasis; E83.52 Hypercalcemia; E66.01 Morbid (severe) obesity due to excess calories; D25.9 Leiomyoma of uterus, unspecified; Z68.30 Body mass index [BMI] 30.0-30.9, adult; J90 Pleural effusion, not elsewhere classified; N13.9 Obstructive and reflux uropathy, unspecified; C79.31 Secondary malignant neoplasm of brain; C78.6 Secondary malignant neoplasm of retroperitoneum and peritoneum
CPT/HCPCS: 36415; 70450-TC; 71045-TC; 76604-TC; 76705-TC; 77075-TC; 80048-TC; 80053-TC; 80076-TC; 81001; 82140-TC; 82232; 82378; 82784; 83605-TC; 83690-TC; 83735-TC; 83880; 83970; 84100-TC; 84155; 84165; 84484-TC; 85025-TC; 85730-TC; 86300; 86334; 87040-TC; 87081-TC; 87086-TC; 93307-TC; 93970-TC; 97110-TC; 97112-TC; 97116-TC; 97530-TC; 97535-TC; C9803; G0378; J0456; J0696; J1940; J2270; J2405; J2430; J7030; J7040; J7050; J7060; Q9967